=== PATIENT | female | born 1980 | race Caucasian/White ===

== ENCOUNTER 2019-12-05 02:47 | Emergency (ER) | payer SELFPAY ==
[2019-12-05] MEDS ORDERED: NA CHLORIDE 0.9% 0 ML ONE (03:13)
--- NOTE | 2019-12-05 03:22 | ER ---
Nurse's Notes [facility] Name: Maria Antonia Dotson Age: 39 yrs Sex: Female : 1980 Arrival Date: 12/05/2019 Time: 02:48 Bed 6 Private MD: Diagnosis: Acute upper respiratory infection, unspecified;, unspecified Presentation: 12/04 02:57 Chief complaint: Patient states: Pt reports she started having nausea, headache, sore ea throat and runny nose for the past two days. Coronavirus screen: Client presents with at least one sign or symptom that may indicate coronavirus-19. Standard/surgical mask placed on the client. Provider contacted for isolation considerations. Ebola Screen: No symptoms or risks identified at this time. Initial Sepsis Screen: Does the patient meet any 2 criteria? No. Patient's initial sepsis screen is negative. Does the patient have a suspected source of infection? No. Patient's initial sepsis screen is negative. Risk Assessment: Do you want to hurt yourself or someone else? Patient reports no desire to harm self or others. Onset of symptoms was December 05, 2019. 02:57 Method Of Arrival: Ambulatory 02:57 Acuity: LILIANA 3 ea Triage Assessment: 03:21 GI: Reports nausea, vomiting. 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 - Social history:: Smoking status: unknown. - Family history:: not pertinent. - Hospitalizations: : No recent hospitalization is reported. Screenin:59 Abuse screen: Denies threats or abuse. Nutritional screening: No deficits noted. ea Tuberculosis screening: No symptoms or risk factors identified. Fall Risk None identified. Assessment: 03:19 General: Appears in no apparent distress. Behavior is calm, cooperative, appropriate wh for age. Pain: Denies pain. Neuro: Level of Consciousness is awake, alert, obeys commands, Oriented to person, place, time, situation, Appropriate for age. Cardiovascular: Capillary refill < 3 seconds. Respiratory: Airway is patent Respiratory effort is even, unlabored, Respiratory pattern is regular, symmetrical. GI: Abdomen is flat, non-distended. : No signs and/or symptoms were reported regarding the genitourinary system. EENT: No signs and/or symptoms were reported regarding the EENT system. Derm: Skin is intact, is healthy with good turgor, Skin is pink, warm \T\ dry. normal. Musculoskeletal: Circulation, motion, and sensation intact. 03:19 Reassessment: Pt positive test, notified by , PT refusing further treatment and requesting to sign AMA, notified provider who talked to the PT. Vital Signs: 02:57 BP 120 / 77; Pulse 90; Resp 18; Temp 97.6; Pulse Ox 100% ; Weight 83.91 kg; Height 5 ea ft. 7 in. (170.18 cm); 02:57 Body Mass Index 28.97 (83.91 kg, 170.18 cm) ED Course: 02:48 Patient arrived in ED. cl3 02:52 Gerry Dupree MD is Attending Physician. rn 02:59 Yu Granados is Primary Nurse. 02:59 Triage completed. ea 03:00 Patient has correct armband on for positive identification. Placed in gown. Bed in low ea position. Call light in reach. 03:01 Arm band placed on right wrist. Patient placed in an exam room, on a stretcher, on ea pulse oximetry. 03:15 Inserted saline lock: 20 gauge in left antecubital area, using aseptic technique. Blood wh collected. 03:21 No provider procedures requiring assistance completed. IV discontinued, intact, bleeding controlled, No redness/swelling at site. 03:23 Primary Nurse role handed off by Yu Granados bb Administered Medications: No medications were administered Outcome: 03:21 AMA AMA form signed 03:21 Condition: stable 03:21 Instructed on follow up and referral plans. 03:22 Patient left the ED. 03:27 Patient left the ED. bb Signatures: Joy Flores RN Gerry Chairez MD MD rn Antunez, Elena, RN RN ea Habalo, Winsy Marie Red cl3
--- NOTE | 2019-12-05 03:22 | EDPHYS ---
Physician Documentation [facility] Name: Maria Antonia Dotson Age: 39 yrs Sex: Female : 1980 Arrival Date: 12/05/2019 Time: 02:48 Bed 6 Private MD: ED Physician Gerry Dupree HPI: 12/04 03:02 This 39 yrs old Female presents to ER via Ambulatory with complaints of rn Vomiting, Headache, chills, cough, sore throat. 03:03 The patient or guardian reports cough, flu symptoms, myalgias, no appetite. Onset: The rn symptoms/episode began/occurred today. Severity of symptoms: At their worst the symptoms were moderate, in the emergency department the symptoms are unchanged. Modifying factors: The symptoms are alleviated by nothing, the symptoms are aggravated by nothing. The patient has not experienced similar symptoms in the past. The patient has not recently seen a physician. Reports 1 day of subjective fever, chills, sore throat, cough, runny nose, myalgias, and generalized fatigue. No known sick contacts. . 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 - Social history:: Smoking status: unknown. - Family history:: not pertinent. - Hospitalizations: : No recent hospitalization is reported. ROS: 03:03 Constitutional: + chills and subjective fever Eyes: Negative for injury, pain, redness, rn and discharge, ENT: + nasal congestion and sore throat Cardiovascular: Negative for chest pain, palpitations, and edema, Respiratory: + cough Abdomen/GI: Negative for abdominal pain, and constipation, Back: Negative for injury and pain, MS/Extremity: Negative for injury and deformity, Skin: Negative for injury, rash, and discoloration, Neuro: + headache and generalized weakness Exam: 03:12 Constitutional: This is a well developed, well nourished patient who is awake, alert, rn and in no acute distress. Head/Face: Normocephalic, atraumatic. ENT: dry MM, no stridor Neck: Trachea midline, no masses palpated, and no cervical lymphadenopathy. Supple, full range of motion without nuchal rigidity, or vertebral point tenderness. No Meningismus. Cardiovascular: Regular rate and rhythm. No pulse deficits. Respiratory: No increased work of breathing, no retractions or nasal flaring. Abdomen/GI: soft, non-tender Skin: Warm, dry MS/ Extremity: Pulses equal, no cyanosis. Neurovascular intact. Full, normal range of motion. Equal circumference. Neuro: Awake and alert, GCS 15, oriented to person, place, time, and situation. Cranial nerves II-XII grossly intact. Motor strength 5/5 in all extremities. Sensory grossly intact. Cerebellar exam normal. Normal gait. Vital Signs: 02:57 BP 120 / 77; Pulse 90; Resp 18; Temp 97.6; Pulse Ox 100% ; Weight 83.91 kg; Height 5 ea ft. 7 in. (170.18 cm); 02:57 Body Mass Index 28.97 (83.91 kg, 170.18 cm) ea MDM: 02:52 Patient medically screened. rn 03:16 Differential Diagnosis: Viral Syndrome. Data reviewed: vital signs, nurses notes, laborer mine test result(s), UPT:. Counseling: I had a detailed discussion with the patient and/or guardian regarding: the historical points, exam findings, and any diagnostic results supporting the discharge/admit diagnosis, the need for outpatient follow up, to return to the emergency department if symptoms worsen or persist or if there are any questions or concerns that arise at home. Special discussion: I discussed with the patient/guardian in detail that at this point there is no indication for admission to the hospital. It is understood, however, that if the symptoms persist or worsen the patient needs to return immediately for re-evaluation. ED course: Pt notified of positive test, she cannot believe it, is thankful but requests that she be let home, wants IV removed, states she needs to go. Plans on seeing her doctor in AM. Told her that does not explain her viral symptoms, and recommend testing. She still wants to leave. Told her needs ultrasound given vaginal spotting and + preg test. . 12/04 02:58 Order name: Urine Microscopic Only rn 12/04 03:11 Order name: Urine --Ancillary (enter results) tt3 12/04 03:11 Order name: Urine Dipstick--Ancillary (enter results) tt3 Administered Medications: No medications were administered Disposition: 12/05/19 03:21 Patient has left against medical advice. Impression: Acute upper respiratory infection, unspecified, , unspecified. - Patients states they are going to Home. - Condition is Stable. - Discharge Instructions: Viral Respiratory Infection, First Trimester of . Follow up: Private Physician; When: As needed; Reason: Recheck today's complaints, Re-evaluation by your physician. - Problem is new. - Symptoms have improved. Signatures: Dispatcher [employer] EDTX Joy Flores RN RN bb Nieto, Roman, MD MD rn Antunez, Elena, RN RN ea Habalo, Winsy Corrections: (The following items were deleted from the chart) 03:19 03:03 Chest Single View+RAD.RAD.BRZ ordered. [facility] 03:22 03:21 12/05/2019 03:21 Patients has left against medical advice. Patient states they wh are going to Home. Condition is Stable. 03:24 03:22 12/05/2019 03:21 Patients has left against medical advice. Patient states they rn are going to Home. Condition is Stable. 03:27 03:24 12/05/2019 03:21 Patients has left against medical advice. Impression: Acute bb upper respiratory infection, unspecified; , unspecified. Patient states they are going to Home. Condition is Stable. Follow up: Private Physician; When: As needed; Reason: Recheck today's complaints, Re-evaluation by your physician. Problem is new. Symptoms have improved. rn
[2019-12-05 03:33] VITALS: BP 120/77; TEMP 97.6; O2SAT 100
[2019-12-05 04:41] LABS: Urine Blood 3+ (NEG); Urine Glucose NEGATIVE (NEG); Urine Protein 1+ (NEG); Urine pH 8.5 (5.0-7.0)
[2019-12-05 04:41] LABS: Urine Bacteria >50 /HPF (<20); Urine Culture Reflex Order REFLEXED; Urine RBC <5 /HPF (NONE SEEN)
== END 2019-12-05 03:27 | disposition left against medical advice (07) ==
LOC: ER 02:47
DX: J06.9 Acute upper respiratory infection, unspecified (principal); Z33.1 Pregnant state, incidental; Z88.0 Allergy status to penicillin; Z88.5 Allergy status to narcotic agent
CPT/HCPCS: 81003; 81015; 81025; 87086; 87088; 99283; J7030

== ENCOUNTER 2020-07-07 14:49 | Inpatient (IN) | payer SELFPAY ==
[2020-07-07] MEDS ORDERED: DIPHENHYDRAMINE 25 MG TAB/CAP PO PRN (15:15)
[2020-07-07] MEDS ORDERED: DOCUSATE NA/SENNA CONC 1 TAB PO PRN (15:15)
[2020-07-07] MEDS ORDERED: BISACODYL 10 MG RECTAL SUPP PR PRN (15:15)
[2020-07-07] MEDS ORDERED: IBUPROFEN 200 MG TAB PO PRN (15:15)
[2020-07-07] MEDS ORDERED: ACETAMINOPHEN 500 MG TAB PO PRN (15:15)
[2020-07-07] MEDS ORDERED: CARBOPROST TROME 250 MCG/ML IM PRN (15:42)
[2020-07-07] MEDS ORDERED: Ringers Lactate 1,000 ML IV PRN (15:42)
[2020-07-07] MEDS ORDERED: METHYLERGONOVINE 0.2MG/ML AMP IM PRN (15:42)
[2020-07-07] MEDS ORDERED: LABETALOL 20 MG/4ML SYRINGE IV ONE (15:50)
[2020-07-07] MEDS ORDERED: LABETALOL 20 MG/4ML SYRINGE IV PRN (15:51)
[2020-07-07] MEDS ORDERED: Ringers Lactate 1,000 ML IV SCH (16:00)
[2020-07-07] MEDS ORDERED: OXYTOCIN/LR 20 UNIT/1,000 ML BAG IV SCH ×2 (16:00)
[2020-07-07] MEDS: Oxycodone HCl/Acetaminophen 1 TAB TAB PO PRN (16:30)
[2020-07-07 16:38] LABS: Urine Appearance CLEAR (Clear); Urine Bilirubin NEGATIVE (Negative); Urine Blood 3+ (Negative); Urine Color YELLOW (Yellow); Urine Glucose NEGATIVE (Negative); Urine Protein TRACE (Negative); Urine Specific Gravity 1.025 (1.005-1.030)
[2020-07-07 16:48] LABS: Barbiturates NEGATIVE (NEGATIVE); Benzodiazepines NEGATIVE (NEGATIVE); Cocaine NEGATIVE (NEGATIVE); METHAMPHETAM POSITIVE (NEGATIVE); Methadone NEGATIVE (NEGATIVE); Opiates NEGATIVE (NEGATIVE); Phencyclidine NEGATIVE (NEGATIVE); THC Cannibis NEGATIVE (NEGATIVE)
[2020-07-07 16:50] LABS: Absolute Lymphocytes (CBC) 1.5 K/uL (0.7-4.9); Basophils % 0.3 % (0-1.3); Hematocrit 31.2 % (36.0-45.0); Lymphocytes % 12.1 % (15.3-44.8); MPV 9.7 fL (7.6-11.3); RBC Red Blood Cell Count 4.12 M/uL (3.86-4.86)
[2020-07-07 16:51] LABS: Urine Bacteria 20-50 /HPF (<20); Urine Mucus 2+ /HPF (NONE SEEN); Urine RBC 20-50 /HPF (NONE SEEN)
[2020-07-07 17:03] VITALS: BMI 29.2
[2020-07-07] MEDS ORDERED: cloNIDine HCL 0.1 MG TAB PO PRN (17:05)
--- NOTE | 2020-07-07 20:23 | DN ---
Surgeon: Bc Kaur MD A 40-year-old 6, para 4, AB1. No care. The patient claims she did not even know sh montse was until she went in to labor today. Says she was thinking about getting a tubal, talked to her doctor 2 to 3 years ago and of course did nothing since then. She was complete on the perine um. When I arrived IV had been started. Second stage of about 20 minutes. Spontaneous vaginal deli very of a 4 pounds 14 ounces female. SGA but obviously term and Apgars 9 and 9. 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 No resuscitation of the baby necessary. Maximino delivery of the placenta. Estimated blood loss 300 cc. No episiotomy. No lacerations. The patient tolerated all procedures well. Diagnoses: Term intrauterine . No care. Vaginal delivery. Small for gestational age. Patient admits to smoking a pack or more of cigarettes a day. Urinary drug screen ordered. DAKOTAH/NIMISHA Voice ID: [id number] Report ID: [id number]
--- NOTE | 2020-07-07 20:26 | HP ---
Date of Admission: 07/07/2020 History Of Present Illness: A 40-year-old multiparous female, 6, para 4, AB1, unknown gestat ional age. No care. Admits to smoking a pack a day or more. Much older than stated age. The patient came in complete and on the perineum. Second stage of about 20 minutes. Family History: Noncontributory. Allergies: PATIENT IS ALLERGIC TO PENICILLIN. Past Surgical History: She has had her gallbladder and appendix removed. Past Medical History: She has no other significant medical history. Physical Examination: Vital Signs: All stable. HEENT: Clear. Pupils are equal, round, reactive to light and accommodation. Poor dental hygiene. Lungs: Clear. Heart: Without murmurs. Breasts: Not examined. Abdomen: Was in the 35- to 37-week size range. Extremities: Clear, although toenail fungus is appa rent. Basically a drop in patient with no care, small for gestational age baby, and we will do our urinary drug screen checking for things such as methamphetamine. DAKOTAH/NIMISHA Voice ID: [id number]
[2020-07-07 21:53] LABS: RPR (Rapid Plasma Reagin) NON-REACT (NON-REACT)
[2020-07-08] MEDS ORDERED: MEDROXYPROGEST ACET 150 MG/ML IM SCH (08:00)
[2020-07-08] MEDS: Oxycodone HCl/Acetaminophen 1 TAB TAB PO PRN ×2 (08:37→21:00)
--- NOTE | 2020-07-09 03:55 | DS ---
Maria Antonia Dotson, a 40-year-old multiparous female. No care. Came in to our institution and d elivered rapidly a 4 pounds 14 ounces female, obviously term SGA. The patient admits to smoking a pa ck of cigarettes or more per day. Had uneventful delivery. Delivery of the placenta without problem s. 300 cc blood loss. The patient is Rh positive, positive for COVID, positive for amphetamine. CP S has been notified. She says she is interested in getting a tubal ligation, but has not been qualif ied for Medicare at this point. She asked for control because she is a smoker and over 35 year s old. We will offer her Depo-Provera that we will give her 3 months and during that time, she knows she needs to get in touch with [facility] to arrange for a tubal sterilization which she wants and I think is a good idea. The baby has done quite well, although CPS has not talked to the patient yet. The patient is much older looking than her stated age and as indicated was positive for methamphetam ine. She denies use. At this point, diagnosis is a 40-year-old multiparous female, positive for amp hetamines, positive for COVID, very high blood pressures which have moderated. The patient states th at she is on hydrochlorothiazide at home and will resume that when she gets home, but now quite stabl e to be dismissed after talking to Pipe Coverer and CPS. DAKOTAH/NIMISHA Voice ID: [id number] Report ID: [id number]
[2020-07-09] MEDS ORDERED: Tdap (Diph,Pertuss(Acell),Tet Vac) 0.5 ML SYR IMVAC ONE (07:31)
[2020-07-09] MEDS: Oxycodone HCl/Acetaminophen 1 TAB TAB PO PRN (07:49)
[2020-07-09] MEDS ORDERED: MEDROXYPROGEST ACET 150 MG/ML IM SCH (08:00)
[2020-07-09 08:45] VITALS: BP 159/90; TEMP 97.7
[2020-07-11 03:26] LABS: HBsAG Nonreactive (Nonreactive)
== END 2020-07-09 10:15 | disposition home or self-care (01) | DRG 178 ==
LOC: 2ND-WC 14:49
PROVIDERS: ADMIT Specialist; ATTEND Specialist
PROC: 10E0XZZ Delivery of Products of Conception, External Approach (ICD-10-PCS; principal; 2020-07-07)
DX: U07.1 COVID-19 (principal); O98.52 Other viral diseases complicating childbirth; O99.324 Drug use complicating childbirth; O99.334 Smoking (tobacco) complicating childbirth; Z37.0 Single live birth; Z3A.37 37 weeks gestation of pregnancy; Z23 Encounter for immunization; Z80.0 Family history of malignant neoplasm of digestive organs
CPT/HCPCS: 36415; 80307; 81001; 85025; 86592; 86762; 86850; 86900; 86901; 87086; 87088; 87340; 90471; 90715; G0433; J1050; J2590; J7120; U0003

== ENCOUNTER 2021-02-24 07:29 | Emergency (ER) | payer SELFPAY ==
[2021-02-24 08:30] LABS: Absolute Lymphocytes (CBC) 1.6 K/uL (0.7-4.9); Lymphocytes % 28.6 % (15.3-44.8); MPV 7.1 fL (7.6-11.3); RBC Red Blood Cell Count 4.37 M/uL (3.86-4.86)
[2021-02-24 08:36] LABS: Protime INR 1.03
[2021-02-24 08:55] LABS: ALT/SGPT 26 U/L (12-78); AST/SGOT 15 U/L (15-37); Alkaline Phosphatase 89 U/L (45-117); BUN Blood Urea Nitrogen 19 mg/dL (7-18); Bicarbonate 26 mmol/L (21-32); Bilirubin Direct 0.2 mg/dL (0-0.2); Bilirubin Total 0.9 mg/dL (0.2-1.0); Glucose Level 93 mg/dL (74-106); Potassium 4.5 mmol/L (3.5-5.1); Protein, Total 8.1 g/dL (6.4-8.2); Sodium Level 139 mmol/L (136-145)
[2021-02-24 11:00] LABS: Urine Blood Trace-lysed (Negative); Urine Glucose Negative (Negative); Urine Protein 1+ (Negative); Urine Specific Gravity >=1.030 (1.005-1.030); Urine pH 5.5 (5.0-7.0)
[2021-02-24 11:16] LABS: Barbiturates NEGATIVE (NEGATIVE); Benzodiazepines NEGATIVE (NEGATIVE); Cocaine NEGATIVE (NEGATIVE); METHAMPHETAM POSITIVE (NEGATIVE); Methadone NEGATIVE (NEGATIVE); Opiates NEGATIVE (NEGATIVE); Phencyclidine NEGATIVE (NEGATIVE); THC Cannibis POSITIVE (NEGATIVE)
[2021-02-24 11:34] LABS: Urine Specific Gravity/Preg >1.030 (1.005-1.030)
[2021-02-24] MEDS ORDERED: DIAZEPAM 5 MG TABLET ONE (18:48)
--- NOTE | 2021-02-25 07:49 | EKG ---
Test Date: 2021-02-24 Test Time: 11:00:[address]: [place]UANITA MEASUREMENT RESULTS: Intervals: Rate: 76 [place]: 178 QRSD: 84 QT: 404 QTc: 454 [place]: P: -10 [place]: 178 QRS: -25 T: -16 INTERPRETIVE STATEMENTS: Normal sinus rhythm Voltage criteria for left ventricular hypertrophy Abnormal ECG No previous ECG available for comparison Electronically Signed On 02-25-21 07:45:46 RADIO ADJUSTER by Jose Antonio Kaur
[2021-02-25] MEDS ORDERED: DIAZEPAM 5 MG TABLET ONE ×2 (13:07→23:44)
[2021-02-26] MEDS ORDERED: DIAZEPAM 5 MG TABLET ONE ×2 (11:00→22:13)
--- NOTE | 2021-02-26 22:01 | EDPHYS ---
Physician Documentation [facility] Name: Maria Antonia Dotson Age: 40 yrs Sex: Female : 1980 Arrival Date: 02/24/2021 Time: 07:38 Bed 14 Private MD: ED Physician Ilir Marin HPI: 02/24 08:20 This 40 yrs old Female presents to ER via Ambulatory with complaints of Suicidal jr8 Ideation. 08:20 Associated signs and symptoms: The patient has no apparent associated signs or jr8 symptoms. Severity of symptoms: At their worst the symptoms were moderate in the emergency department the symptoms are unchanged. The patient has experienced a previous episode. The patient has not recently seen a physician. Has been hearing voices and seeing things that she shouldn't be seeing about 6 months ago. Stated that it has been getting worse since then. Saw someone initially and was put on Lamictal. Stated that she had PTSD. Stated that she tried to kill herself by taking a bunch of pills about a month ago. Feels very paranoid. Occasionally utilized methamphetamine's as well. Came to ED today because voices continue to get worse and feels suicidal. No plan currently. Stated that she has an overwhelming feeling of "just not wanting to be alive any longer". . [employer]ER: 02/26 05:24 LMP N/A - sv1 Historical: - Allergies: 02/24 07:51 PENICILLINS; ll1 07:51 Tramadol HCl; ll1 - PMHx: 07:55 Hypertensive disorder; ll1 - PSHx: 07:55 Appendectomy; Cholecystectomy; ll1 - Immunization history:: Client reports receiving the 2nd dose of the Covid vaccine. - Social history:: Smoking status: Patient reports the use of cigarette tobacco products, smokes one-half pack cigarettes per day. ROS: 08:20 Eyes: Negative for injury, pain, redness, and discharge, ENT: Negative for injury, jr8 pain, and discharge, Neck: Negative for injury, pain, and swelling, Cardiovascular: Negative for chest pain, palpitations, and edema, Respiratory: Negative for shortness of breath, cough, wheezing, and pleuritic chest pain, Abdomen/GI: Negative for abdominal pain, nausea, vomiting, diarrhea, and constipation, Back: Negative for injury and pain, MS/Extremity: Negative for injury and deformity, Skin: Negative for injury, rash, and discoloration, Neuro: Negative for headache, weakness, numbness, tingling, and seizure. 08:20 Psych: Positive for anxiety, depression, auditory hallucinations, visual hallucinations, suicidal ideation. Exam: 08:20 ENT: Nares patent. No nasal discharge, no septal abnormalities noted. Tympanic jr8 membranes are normal and external auditory canals are clear. Oropharynx with no redness, swelling, or masses, exudates, or evidence of obstruction, uvula midline. Mucous membranes moist. Neck: Trachea midline, no thyromegaly or masses palpated, and no cervical lymphadenopathy. Supple, full range of motion without nuchal rigidity, or vertebral point tenderness. No Meningismus. Cardiovascular: Regular rate and rhythm with a normal S1 and S2. No gallops, murmurs, or rubs. Normal PMI, no JVD. No pulse deficits. Respiratory: Lungs have equal breath sounds bilaterally, clear to auscultation and percussion. No rales, rhonchi or wheezes noted. No increased work of breathing, no retractions or nasal flaring. Abdomen/GI: Soft, non-tender, with normal bowel sounds. No distension or tympany. No guarding or rebound. No evidence of tenderness throughout. Back: No spinal tenderness. No costovertebral tenderness. Full range of motion. Skin: Warm, dry with normal turgor. Normal color with no rashes, no lesions, and no evidence of cellulitis. MS/ Extremity: Pulses equal, no cyanosis. Neurovascular intact. Full, normal range of motion. Neuro: Awake and alert, GCS 15, oriented to person, place, time, and situation. Cranial nerves II-XII grossly intact. Motor strength 5/5 in all extremities. Sensory grossly intact. Cerebellar exam normal. Normal gait. 08:20 Constitutional: The patient appears alert, awake, anxious. 08:20 Psych: Behavior/mood is cooperative, anxious, suicidal, depressed, Affect is animated, Oriented to person, place, time, Patient having thoughts of suicide. Denies suicidal plan. Judgement / Insight is normal. Memory is normal. Delusions/hallucinations are present and described as see hpi. Vital Signs: 07:51 BP 126 / 72; Pulse 89; Resp 17; Temp 99.1; Pulse Ox 100% ; Weight 77.11 kg; Height 5 ll1 ft. 7 in. (170.18 cm); Pain 5/10; 11:00 BP 115 / 84; Pulse 78; Resp 16 S; Pulse Ox 98% on R/A; jg9 18:48 BP 94 / 60; Pulse 90; Resp 18 S; Pulse Ox 96% on R/A; jg9 19:58 BP 106 / 45 LA Supine (auto/reg); Pulse 84; Resp 16; Temp 98.2; Pulse Ox 99% ; tk1 02/25 06:31 BP 117 / 72 LA Supine (auto/reg); Pulse 77 MON; Resp 18; Temp 98.5(O); Pulse Ox 98% on tk1 R/A; 07:10 BP 123 / 74; Pulse 76; Resp 18; Temp 97.7(O); Pulse Ox 100% ; Pain 0/10; jh6 17:47 BP 106 / 50; Pulse 72; Resp 17; Temp 97.6(O); Pulse Ox 100% ; Pain 0/10; jh6 02/26 01:59 BP 121 / 59; Pulse 87; Resp 14; Temp 98.4; Pulse Ox 98% ; sv1 09:37 BP 111 / 76; Pulse 82; Resp 16; Temp 98.6(O); Pulse Ox 100% on R/A; mh5 19:36 BP 118 / 89; Pulse 88; Resp 21; Temp 99.0; Pulse Ox 100% 0 lpm ; sv1 02/27 01:49 BP 119 / 75; Pulse 80; Resp 14; Temp 98.0; Pulse Ox 99% 0 lpm ; sv1 06:31 BP 120 / 77; Pulse 77; Resp 16; Pulse Ox 96% ; sv1 07:15 BP 118 / 72; Pulse 76; Resp 16; Temp 98.6; Pulse Ox 98% ; Pain 0/10; cb5 12:05 BP 116 / 70; Pulse 70; Resp 16; Pulse Ox 98% ; Pain 0/10; cb5 02/24 07:51 Body Mass Index 26.63 (77.11 kg, 170.18 cm) ll1 MDM: 02/24 08:20 Patient medically screened. jr8 02/26 17:02 Differential diagnosis: drug withdrawal. acute psychotic break, depression, psychosis ma2 secondary to non-compliance. Data reviewed: vital signs, nurses notes. Counseling: I had a detailed discussion with the patient and/or guardian regarding: the historical points, exam findings, and any diagnostic results supporting the discharge/admit diagnosis, the presence of at least one elevated blood pressure reading (>120/80) during this emergency department visit, the need to transfer to another facility. Response to treatment: There is no appreciated change of the patient's symptoms at this time. ED course: I received signout from Dr. Alvarado as a psych patient pending placement. I evaluated patient she had suicidal ideation, she had organized thought of suicidal plan within the last 3 months, she feels depressed, positive substance use, she also has no home or support system. She was evaluated by behavioral health, and they recommends inpatient placement, need to be transferred to higher level of care for psych facility since we do not have a psychiatrist in our hospital. Patient has been agreeable to transfer and agreeable to inpatient care. However at 1704, patient raise concern that she would like to be discharged at this time. Reviewed all risk factors, given that this is a high risk suicide ideation, will place patient on ARTIE.. 02/27 13:24 ED course: Patient is currently residing with Dada Anaya. Mr. Anaya arrived in the kdr department and was able to provide some overall background context for her current condition and mental status. He states that the patient has lived with him for some time. He indicated and confirmed that her psychiatric status is largely depended on the fact that her children have been taken from her recently. He states that he is seeing her and suicidal states previously and that he recognizes when she is becoming unstable and may need professional evaluation and treatment. He had no concern whatsoever and taking the patient home with him. He indicated that there were others, family and friends, who would be able to help look after her as well. Again he had no reservations in us discharging the patient and his care. 02/24 08:12 Order name: Acetaminophen; Complete Time: ll1 02/24 08:12 Order name: Basic Metabolic Panel; Complete Time: : ll1 02/24 08:12 Order name: CBC with Diff; Complete Time: 08:47 ll1 02/24 08:12 Order name: ETOH Level; Complete Time: ll1 02/24 08:12 Order name: Hepatic Function; Complete Time: : [facility] 02/24 08:12 Order name: PT-INR; Complete Time: 08:47 [facility] 02/24 08:12 Order name: Ptt, Activated; Complete Time: 08:47 [facility] 02/24 08:12 Order name: Salicylate; Complete Time: 09:22 [facility] 02/24 08:12 Order name: Urine Drug Screen; Complete Time: 11:16 [facility] 02/24 10:27 Order name: COVID-19 SARS RT PCR (Document "Date of Onset" if Symptomatic); Complete bd Time: 12:20 02/24 11:00 Order name: Urine Dipstick-Ancillary; Complete Time: 11:03 EDMS 02/24 11:00 Order name: Urine --Ancillary (enter results); Complete Time: 11:35 bd 02/24 08:12 Order name: EKG; Complete Time: 08:12 [facility] 02/24 08:12 Order name: EKG - Nurse/Tech; Complete Time: 11:00 [facility] 02/24 08:12 Order name: Labs collected and sent; Complete Time: 10:52 [facility] 02/24 08:12 Order name: Suicide Screening (Benzie); Complete Time: 10:52 [facility] 02/24 08:12 Order name: Urine Dipstick-Ancillary (obtain specimen); Complete Time: 11:00 [facility] 02/24 13:24 Order name: Diet Finger Food; Complete Time: 13:25 02/24 16:11 Order name: Diet Finger Food; Complete Time: 16:11 bd 02/25 07:27 Order name: Diet Finger Food; Complete Time: 07:27 bd 02/25 10:17 Order name: Diet Finger Food: For Lunch 02/25 psych pt; Complete Time: 10:18 ss 02/25 15:37 Order name: Diet Finger Food; Complete Time: 15:37 bd 02/26 11:33 Order name: Diet Finger Food; Complete Time: 11:33 bd Administered Medications: 02/24 18:50 Drug: Valium (diazepam) 5 mg Route: PO; jg9 02/25 23:09 Follow up: Response: No adverse reaction sv1 13:08 Drug: Valium (diazepam) 5 mg Route: PO; jh6 15:24 Follow up: Response: Anxiety decreased jh6 23:08 Follow up: Response: No adverse reaction sv1 23:49 Follow up: Response: No adverse reaction sv1 23:49 Drug: Valium (diazepam) 5 mg Route: PO; sv1 02/26 05:25 Follow up: Response: No adverse reaction; Anxiety decreased sv1 11:00 Drug: Valium (diazepam) 5 mg Route: PO; cb5 22:15 Drug: Valium (diazepam) 5 mg Route: PO; sv1 02/27 06:33 Follow up: Response: No adverse reaction; Anxiety decreased sv1 Disposition: 02/26 22:01 Co-signature as Attending Physician, Trevon Hernández MD I agree with the assessment and [facility] plan of care. Disposition Summary: 02/27/21 13:27 Discharge Ordered Location: Home kdr Problem: an acute exacerbation(02/27/21 13:27) kdr Symptoms: are resolved(02/27/21 13:27) kdr Condition: Stable(02/27/21 13:27) kdr Diagnosis - Major depressive disorder, recurrent, moderate, schizophrenia, unspecified, abuse kdr of other nonpsychoactive substances, adverse effects of amphetamine, Followup: kdr - With: Private Physician - When: 2 - 3 days - Reason: If symptoms return, Further diagnostic work-up, Recheck today's complaints, Continuance of care, Re-evaluation by your physician Discharge Instructions: - Discharge Summary Sheet kdr Forms: - Medication Reconciliation Form kdr - Thank You Letter kdr - Antibiotic Education kdr - Prescription Opioid Use kdr Signatures: Dispatcher [employer] EDTrevon Adams MD MD cha Rittger, Kevin, MD MD kdr Nieto, Roman, MD MD rn Roszak, Josh, PA PA jr8 Jayson Finley MD MD ma2 oLida Red RN RN ll1 Kemi Lazcano RN RN jh6 Kemi Burton, RN RN jg9 Preston Peck RN RN sv1 Yessenia Alberto, RN RN cb5 Corrections: (The following items were deleted from the chart) 22:01 22:00 to psych nick nick 02/27 13:02/26 22:00 Psych Facility nick kdr 02/27 13:02/26 22:00 Higher level of care nick kdr 02/27 13:02/26 22:00 Stable nick kdr 02/27 13:02/26 22:00 new nick kdr 02/28 12:02/26 22:00 have improved nick kdr 02/28 12:02/26 22:00 Major depressive disorder, recurrent, moderate nick kdr 02/28 12:02/26 22:00 Schizophrenia, unspecified nick kdr 02/28 12:02/26 22:01 to psych nick kdr 02/28 12:02/26 22:01 Abuse of other non-psychoactive substances nick kdr 02/28 12:02/26 22:01 Adverse effect of amphetamines nick kdr
--- NOTE | 2021-02-26 22:01 | ER ---
Nurse's Notes [facility] Name: Maria Antonia Dotson Age: 40 yrs Sex: Female : 1980 Arrival Date: 02/24/2021 Time: 07:38 Bed 14 Private MD: Diagnosis: Major depressive disorder, recurrent, moderate, schizophrenia, unspecified, abuse of other nonpsychoactive substances, adverse effects of amphetamine, Presentation: 02/24 07:51 Chief complaint: Patient states: Haering voices and generalized suicidal thoughts for ll1 about 2 weeks. No history of SI or hearing voices. Coronavirus screen: Vaccine status: Patient reports receiving the 2nd dose of the covid vaccine. Client denies travel out of the [place] in the last 14 days. At this time, the client does not indicate any symptoms associated with coronavirus-19. Ebola Screen: Patient denies travel to an Ebola-affected area in the 21 days before illness onset. Initial Sepsis Screen: Does the patient meet any 2 criteria? No. Patient's initial sepsis screen is negative. Does the patient have a suspected source of infection? No. Patient's initial sepsis screen is negative. Risk Assessment: Do you want to hurt yourself or someone else? Patient reports no desire to harm self or others. Onset of symptoms was February 10, 2021. 07:51 Method Of Arrival: Ambulatory ll1 07:51 Acuity: LILIANA 2 bb Triage Assessment: 11:11 General: Appears in no apparent distress. Behavior is calm, crying. Pain: Complains of jg9 pain in chest. 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 - Social history:: Smoking status: Patient reports the use of cigarette tobacco products, smokes one-half pack cigarettes per day. Screenin:10 Abuse screen: Denies threats or abuse. Denies injuries from another. Nutritional jg9 screening: No deficits noted. Tuberculosis screening: No symptoms or risk factors identified. Fall Risk None identified. Assessment: 11:38 Reassessment: Patient appears in no apparent distress at this time. Patient resting in jg9 bed awake, calm and cooperative. Patient conversing with nurse and reports that she has been having a rough time since August-she reports that she started experiencing things or what she thought was things causing her hair to move, and she reported she lived in a residence that was infested with termites so she moved out the home and into a hotel with her 2 children. Patient goes on to report that she lived there until she caught COVID-had to miss her probation report appointment which resulted in a warrant being issued . Patient said she was on probation due to a DUI a few years ago, she was stopped at a gas station and due to the warrant was taken to custodial. Patient goes on to report that ever since then it has been one thing after the next to the point of her currently being homeless and feeling helpless. Patient reports that she has/had been hearing voices. Patient states she has no plan or idea of how to kill herself but if she could go to sleep and not wake up she is ok with that; but she is suicidal and is just at the bottom and does not see anything improving or getting better for her. Patient reports 1 person that was helping her; Dada but last night he put her out his car after they made attempts to find a place for the patient to go, she report that Dada said she is trying to take him down with her. Patient reports that she slept outside in the cold all night and just couldn't take it anymore so she came to the ED to get food and warm. Patient crying at times during this conversation but was very open to questions asked. 19:27 Reassessment: Patient is alert, oriented x 3, equal unlabored respirations, skin tk1 warm/dry/pink. Patient at nurses station using telephone. Requesting friend bring her cell to her for transfer. 20:02 Reassessment: Patient changed into paper gown. Personal items removed and inventory tk1 done on paper documentation. 22:00 Reassessment: Patient appears in no apparent distress at this time. No changes from tk1 previously documented assessment. 02/25 00:00 Reassessment: Patient appears in no apparent distress at this time. No changes from tk1 previously documented assessment. Patient resting with eyes closed. Respirations even and unlabored. Will continue to monitor. 04:00 Reassessment: Patient awake, calm. Requested something to eat and drink. Patient given tk1 crackers and peanut butter with drink. Patient ate 100%. 06:30 Reassessment: No changes from previously documented assessment. Patient is alert, tk1 oriented x 3, equal unlabored respirations, skin warm/dry/pink. 07:10 Reassessment: Patient is alert, oriented x 3, equal unlabored respirations, skin jh6 warm/dry/pink. General: Appears in no apparent distress. comfortable, obese, Pt states that she has recently lost her house and that with increased drug use that she has had thoughts of harming herself. states that she was able to sleep well last night but that she is feeling a little anxious. states that she is not feeling si this am but knows that she needs help. reports hearing voices for some time but has never been on meds.. 09:00 Reassessment: No changes from previously documented assessment. Patient is alert, jh6 oriented x 3, equal unlabored respirations, skin warm/dry/pink. 09:00 Pain: Denies pain. Neuro: No deficits noted. jh6 17:42 Reassessment: Patient is alert, oriented x 3, equal unlabored respirations, skin jh6 warm/dry/pink. pt eating dinner nad, laughing at while watching tv. 23:51 Reassessment: The patient has been cooperative . She has been eating finger foods. sv1 Affect is calm and cooperative. Will continue to monitor. . 02/26 02:00 Reassessment: Vital signs stable. No acute distress noted. Exclusion document was sent sv1 to [facility]. . 05:24 Reassessment: Continues to sleep quietly. . sv1 07:10 General: Appears in no apparent distress. comfortable, obese, Behavior is calm, pt cb5 asleep.. no distress. Pain: Noted to be pt asleep. Cardiovascular: No deficits noted. Respiratory: No deficits noted. GI: No deficits noted. : No deficits noted. EENT: No deficits noted. Derm: No deficits noted. Musculoskeletal: No deficits noted. 07:44 Reassessment: Pt awake, eating breakfast, denies pain, no distress. Safety precautions cb5 in effect on SI precautions, Pt is in view of nurse at nurses station. No harmful equiptment at bedside. No sharps in room. Pt is calm, cooperative. 07:54 Reassessment: pt ate 100% of breakfast, larry well. Pt went back to sleep. Remains in cb5 nurses view. 08:30 Reassessment: Pt asleep, no distress, safety precautions in effect. cb5 09:00 Reassessment: pt in no distress, safety precautions are in effect. cb5 09:30 Reassessment: pt in no distress, safety precautions in effect. cb5 10:00 Reassessment: No changes from previously documented assessment. cb5 10:30 Reassessment: pt awake, no distress, safety precautions in effect. cb5 11:00 Reassessment: pt asleep no distress, safety precautions in effect. cb5 12:00 Reassessment: No changes from previously documented assessment. cb5 13:00 Reassessment: No changes from previously documented assessment. cb5 14:00 Reassessment: No changes from previously documented assessment. cb5 15:00 Reassessment: No changes from previously documented assessment. cb5 16:00 Reassessment: No changes from previously documented assessment. cb5 17:27 Reassessment: No changes from previously documented assessment. pt eating finner, in no cb5 distress, safety precautions in effect.. 18:00 Reassessment: No changes from previously documented assessment. pt ate 100% of dinner cb5 tolerated well, denies pain, no distress. safety precautions in effect, pt denies SI thoughts throughout day. . 22:27 Reassessment: Resting quietly. Medicated po for anxiety. Will continue to monitor. -. sv1 02/27 01:50 Reassessment: Sleeping quietly. No distress noted. . sv1 07:00 Reassessment: Patient and/or family updated on plan of care and expected duration. Pain cb5 level reassessed. pt is asleep in no distress, in view of nurses station. Safety precautions in effect. 08:00 Reassessment: No changes from previously documented assessment. pt ate 100% of cb5 breakfast, larry well, no distress. Asleep. 09:00 Reassessment: No changes from previously documented assessment. cb5 09:45 Reassessment: pt is requesting to go home, AMA, denies feeling SI/HI wants to speak cb5 with the charge nurse and Sumeet. Informed charge nurse. Pt is here voluntary. 10:00 Reassessment: No changes from previously documented assessment. cb5 10:23 Reassessment: Sumeet is at bedside with patient. cb5 11:00 Reassessment: No changes from previously documented assessment. cb5 11:35 Reassessment: pt is waiting on family member to arrive to discuss safety plan before cb5 possible discharge home. 12:00 Reassessment: No changes from previously documented assessment. cb5 Psych: 02/24 11:11 [place] Suicide Severity Screening: In the past month, have you wished you were jg9 or wished you could go to sleep and not wake up? Patient responds "yes." "In the past month, have you actually had any thoughts of killing yourself?" Patient responds "no." "In your lifetime, have you ever done anything, started to do anything, or prepared to do anything to end your life?" Patient responds "no.". Subjective: Patient's mood is sad, Delusions are denied, Hallucinations are auditory, Having thoughts of suicide. Objective: Patient is cooperative, Speech is normal, Affect is appropriate. Interventions: Searched person for dangerous items. Urine collected and sent for urine drug test. Safety Checks: Patient room near nursing station, curtain open. Patient uses methamphetamines hx of abuse reported by patient. Commitment: Patient will be a voluntary commitment. 02/25 00:40 [place] Suicide Severity Screening: In the past month, have you wished you were tk1 or wished you could go to sleep and not wake up? Patient responds "yes." Based off the client's responses additional C-SSRS screening is required. Subjective: Hallucinations are auditory. Objective: Patient is cooperative, Speech is normal, Affect is appropriate. Interventions: Removed personal items and placed in bag. Patient placed in hospital gown. Searched person for dangerous items. Belonging list filled out. Safety Checks: Personal items have been removed. Door closed for decreased stimulation. Britney opened. Patient within view of said nurse. Patient uses methamphetamines. Commitment: Patient will be a voluntary commitment. Vital Signs: 02/24 07:51 BP 126 / 72; Pulse 89; Resp 17; Temp 99.1; Pulse Ox 100% ; Weight 77.11 kg; Height 5 ll1 ft. 7 in. (170.18 cm); Pain 5/10; 11:00 BP 115 / 84; Pulse 78; Resp 16 S; Pulse Ox 98% on R/A; jg9 18:48 BP 94 / 60; Pulse 90; Resp 18 S; Pulse Ox 96% on R/A; jg9 19:58 BP 106 / 45 LA Supine (auto/reg); Pulse 84; Resp 16; Temp 98.2; Pulse Ox 99% ; tk1 02/25 06:31 BP 117 / 72 LA Supine (auto/reg); Pulse 77 MON; Resp 18; Temp 98.5(O); Pulse Ox 98% on tk1 R/A; 07:10 BP 123 / 74; Pulse 76; Resp 18; Temp 97.7(O); Pulse Ox 100% ; Pain 0/10; jh6 17:47 BP 106 / 50; Pulse 72; Resp 17; Temp 97.6(O); Pulse Ox 100% ; Pain 0/10; jh6 02/26 01:59 BP 121 / 59; Pulse 87; Resp 14; Temp 98.4; Pulse Ox 98% ; sv1 09:37 BP 111 / 76; Pulse 82; Resp 16; Temp 98.6(O); Pulse Ox 100% on R/A; mh5 19:36 BP 118 / 89; Pulse 88; Resp 21; Temp 99.0; Pulse Ox 100% 0 lpm ; sv1 02/27 01:49 BP 119 / 75; Pulse 80; Resp 14; Temp 98.0; Pulse Ox 99% 0 lpm ; sv1 06:31 BP 120 / 77; Pulse 77; Resp 16; Pulse Ox 96% ; sv1 07:15 BP 118 / 72; Pulse 76; Resp 16; Temp 98.6; Pulse Ox 98% ; Pain 0/10; cb5 12:05 BP 116 / 70; Pulse 70; Resp 16; Pulse Ox 98% ; Pain 0/10; cb5 02/24 07:51 Body Mass Index 26.63 (77.11 kg, 170.18 cm) ll1 ED Course: 02/24 07:38 Patient arrived in ED. ds1 07:51 Arm band placed on. ll1 07:55 Triage completed. ll1 08:20 Jose Anderson PA is PHCP. jr8 08:20 Gerry Dupree MD is Attending Physician. jr8 10:50 contacted [facility] to have screener evaluate pt. bd 10:52 Kemi Burton, RN is Primary Nurse. jg9 11:00 Appears tearful. Safety Checks: The door is open or patient has been placed in a [facility] hallway bed/chair. Items have not been removed Sitter not present at this time due to or because Patient under moderate observation, patient visible in room from the nurses station. 11:00 Patient has correct armband on for positive identification. Bed in low position. jg9 11:00 Urine Drug Screen Sent. mack 11:00 COVID-19 SARS RT PCR (Document "Date of Onset" if Symptomatic) Sent. mack 11:00 Urine Dipstick-Ancillary Sent. mack 11:45 Diet: finger foods and drinks provided. jg9 12:00 No apparent distress. conversing with staff-psych/social work supervisor. jg9 13:00 Appears to be sleeping. jg9 13:21 faxed chart to [facility] and [facility]. bd 14:00 Appears to be sleeping. jg9 18:44 pt is on wait list at [facility] for a [facility] bed. bd 18:48 Anxious. jg9 19:00 spoke with [facility], chart is still under review. bd 19:06 Attending Physician role handed off by Gerry Dupree MD sp3 19:06 Saeid Alvarado MD is Attending Physician. sp3 19:06 Saeid Alvarado MD is Attending Physician. sp3 19:30 Patient is placed in psych hold. tk1 02/25 00:22 Safety Checks: Personal items have been removed. Secured with security after inventory tk1 and labeling. The door is open or patient has been placed in a hallway bed/chair. Sitter not present at this time. 00:34 Dada (family friend) [phone]. mw2 07:05 Safety Checks: Personal items have been removed. The door is open or patient has been jh6 placed in a hallway bed/chair. Items have not been removed Sitter not present at this time. 07:05 transfer approval from receiving facility. jh6 09:00 No apparent distress. Resting quietly. Appears to be sleeping. jh6 09:00 Safety Checks: Personal items have been removed. The door is open or patient has been jh6 placed in a hallway bed/chair. Sitter not present at this time. 11:00 No apparent distress. Resting quietly. jh6 12:00 transfer approval from receiving facility. jh6 12:00 states that she is starting to feel a little anxious like last night. Pt asking if she jh6 can get some thing to help. Safety Checks: Personal items have been removed. Sitter not present at this time. 15:23 No apparent distress. Resting quietly. Appears to be sleeping. Safety Checks: The door jh6 is open or patient has been placed in a hallway bed/chair. Sitter not present at this time. 17:00 No apparent distress. Resting quietly. Safety Checks: Sitter not present at this time. 6 02/26 07:35 Primary Nurse role handed off by Kemi Burton, RN 5 07:35 Yessenia Alberto, KARL is Primary Nurse. 5 12:54 refaxed chart to [facility], [facility] with Mora, pt is on wait list for [facility]. bd 19:01 Report given to Kenyon Pickard cb5 21:58 Attending Physician role handed off by Saeid Alvarado MD nick 21:58 Trevon Hernández MD is Attending Physician. nick 02/27 13:24 Attending Physician role handed off by Trevon Hernández MD kdr 13:24 Ilir Marin MD is Attending Physician. kdr 13:35 No provider procedures requiring assistance completed. IV discontinued, intact, jl7 bleeding controlled, No redness/swelling at site. Pressure dressing applied. Administered Medications: 02/24 18:50 Drug: Valium (diazepam) 5 mg Route: PO; jg9 02/25 23:09 Follow up: Response: No adverse reaction sv1 13:08 Drug: Valium (diazepam) 5 mg Route: PO; jh6 15:24 Follow up: Response: Anxiety decreased jh6 23:08 Follow up: Response: No adverse reaction sv1 23:49 Follow up: Response: No adverse reaction sv1 23:49 Drug: Valium (diazepam) 5 mg Route: PO; sv1 02/26 05:25 Follow up: Response: No adverse reaction; Anxiety decreased sv1 11:00 Drug: Valium (diazepam) 5 mg Route: PO; cb5 22:15 Drug: Valium (diazepam) 5 mg Route: PO; sv1 02/27 06:33 Follow up: Response: No adverse reaction; Anxiety decreased sv1 Outcome: 02/26 22:00 ER care complete, transfer ordered by . nick 02/27 13:27 Discharge ordered by . kdr 13:35 Patient left the ED. jl7 Signatures: Daphney Andujar Corey, MD MD cha Rittger, Kevin, MD MD kdr Sanford, Bettye ds1 Joy Flores, RN RN bb Jose Anderson PA PA jr8 Magy Rouse Jahala RN RN jl7 Terri Diaz mw2 Loida Red RN RN ll1 Saeid Alvarado MD MD sp3 Kemi Lazcano RN RN jh6 Kemi Burton, RN RN jg9 Preston Peck RN RN sv1 Sejal Paniagua RN Keyona Sun tk1 Yessenia Alberto, RN RN cb5 Corrections: (The following items were deleted from the chart) 02/24 13:28 13:26 Diet: finger foods and drinks provided. jg9 jg9 21:57 07:51 Acuity: LILIANA 3 ll1 bb 02/25 00:44 00:25 General: Behavior is tk1 tk1
[2021-02-27 14:14] VITALS: TEMP 98.6; O2SAT 98
[2021-02-27 14:15] VITALS: BP 116/70
== END 2021-02-27 13:35 | disposition home or self-care (01) ==
LOC: ER 07:29
DX: F33.1 Major depressive disorder, recurrent, moderate (principal); F20.9 Schizophrenia, unspecified; F55.8 Abuse of other non-psychoactive substances; T43.625A Adverse effect of amphetamines, initial encounter; I10 Essential (primary) hypertension; F17.210 Nicotine dependence, cigarettes, uncomplicated; Z20.822 Contact with and (suspected) exposure to COVID-19; Z88.0 Allergy status to penicillin; Z88.5 Allergy status to narcotic agent
CPT/HCPCS: 36415; 80048; 80076; 80307; 80320; 80329; 81003; 81025; 85025; 85610; 85730; 93005; 99284; U0003

== ENCOUNTER 2021-06-10 08:25 | Emergency (ER) | payer SELFPAY ==
[2021-06-10] MEDS ORDERED: IBUPROFEN 400 MG TAB ONE (08:57)
[2021-06-10] MEDS ORDERED: IBUPROFEN 200 MG TAB PO ONE (08:57)
[2021-06-10 10:40] LABS: SARS-COV-2 RT PCR NEGATIVE (NEGATIVE)
--- NOTE | 2021-06-10 10:43 | ER ---
Nurse's Notes [facility] Name: Maria Antonia Dotson Age: 41 yrs Sex: Female : 1980 Arrival Date: 06/10/2021 Time: 08:27 Bed 16 Private MD: Diagnosis: Influenza A Presentation: 06/10 08:35 Chief complaint: Patient states: Body aches, congestion, MEJIA, fatigue, chills for 2 ll1 days. Coronavirus screen: Vaccine status: Patient reports receiving the 2nd dose of the covid vaccine. Client denies travel out of the [place] in the last 14 days. chills, congestion, fatigue, fever, headache, muscle pain, sore throat, Client presents with at least one sign or symptom that may indicate coronavirus-19. Standard/surgical mask placed on the client. Ebola Screen: Patient denies travel to an Ebola-affected area in the 21 days before illness onset. Initial Sepsis Screen: Does the patient meet any 2 criteria? No. Patient's initial sepsis screen is negative. Does the patient have a suspected source of infection? Yes: Other: nasal congestion/body aches. Risk Assessment: Do you want to hurt yourself or someone else? Patient reports no desire to harm self or others. Onset of symptoms was June 09, 2021. 08:35 Method Of Arrival: Ambulatory ll1 08:35 Acuity: LILIANA 4 ll1 Triage Assessment: 08:37 General: Appears ill, Behavior is cooperative, appropriate for age. Pain: Complains of ll1 pain in head Pain currently is 10 out of 10 on a pain scale. Pain began 1 day ago. Also complains of no other associated symptoms. EENT: Reports nasal congestion pain when swallowing. Neuro: Reports headache weakness. Musculoskeletal: Reports pain in all over. Historical: - Allergies: 08:35 PENICILLINS; ll1 08:35 Tramadol HCl; ll1 - PMHx: 08:35 Hypertensive disorder; ll1 - PSHx: 08:35 Appendectomy; Cholecystectomy; ll1 - Immunization history:: Client reports receiving the 2nd dose of the Covid vaccine. - Social history:: Smoking status: Patient reports the use of cigarette tobacco products, smokes one-half pack cigarettes per day. Screenin:04 Abuse screen: Denies threats or abuse. Denies injuries from another. Nutritional ph screening: No deficits noted. Tuberculosis screening: No symptoms or risk factors identified. Fall Risk None identified. Assessment: 09:08 General: Appears in no apparent distress. uncomfortable, Behavior is calm, cooperative, ph appropriate for age. Pain: Complains of pain in headache. Neuro: Level of Consciousness is awake, alert, obeys commands, Oriented to person, place, time, situation, Reports headache. Cardiovascular: Capillary refill < 3 seconds in bilateral fingers Patient's skin is warm and dry. Respiratory: Airway is patent Respiratory effort is even, unlabored, Respiratory pattern is regular, symmetrical. GI: Patient currently denies abdominal pain, nausea, vomiting. EENT: Reports nasal congestion. Derm: Skin is intact, is healthy with good turgor, Skin is pink, warm \T\ dry. Musculoskeletal: Circulation, motion, and sensation intact. Range of motion: intact in all extremities. 10:40 Reassessment: Notified ANTHONY Huang that Flu A test is positive. ss Vital Signs: 08:35 BP 127 / 82; Pulse 96; Resp 17; Temp 99.4(O); Pulse Ox 100% on R/A; Weight 74.84 kg; ll1 Height 5 ft. 7 in. (170.18 cm); Pain 10/10; 09:12 BP 132 / 90; Pulse 90; Resp 18; Pulse Ox 98% on R/A; ph 10:54 BP 128 / 78; Pulse 86; Resp 18; Temp 98.0; Pulse Ox 99% on R/A; ph 08:35 Body Mass Index 25.84 (74.84 kg, 170.18 cm) ll1 ED Course: 08:27 Patient arrived in ED. ds1 08:30 Sal De Jesus PA is PHCP. jmm 08:30 Ilir Marin MD is Attending Physician. jmm 08:31 Julianna Oconnor, KARL is Primary Nurse. ph 08:35 Arm band placed on Patient placed in an exam room, on a stretcher. ll1 08:37 Triage completed. ll1 09:06 Patient has correct armband on for positive identification. Bed in low position. Call ph light in reach. Side rails up X 1. Pulse ox on. NIBP on. 09:12 No provider procedures requiring assistance completed. Patient did not have IV access ph during this emergency room visit. Administered Medications: 09:04 Drug: Ibuprofen 600 mg Route: PO; ph 09:14 Follow up: Response: No adverse reaction ph Outcome: 10:42 Discharge ordered by MD. hunter 10:52 Discharged to home ambulatory. ph 10:52 Condition: good 10:52 Discharge instructions given to patient, Instructed on discharge instructions, follow up and referral plans. Demonstrated understanding of instructions, follow-up care, medications, Prescriptions given X 2. 10:58 Patient left the ED. ph Signatures: Sal De Jesus PA PA jmm Sanford, Demi ds1 Mary Alvarado RN RN ss Julianna Oconnor RN RN ph Loida Red RN RN ll1
--- NOTE | 2021-06-10 10:43 | EDPHYS ---
Physician Documentation [facility] Name: Maria Antonia Dotson Age: 41 yrs Sex: Female : 1980 Arrival Date: 06/10/2021 Time: 08:27 Bed 16 Private MD: ED Physician Ilir Marin HPI: 06/10 08:34 This 41 yrs old Female presents to ER via Ambulatory with complaints of Headache, Body jmm Aches. 08:34 The patient complains of pain to the forehead. Onset: The symptoms/episode jmm began/occurred gradually, 2 day(s) ago. Associated signs and symptoms: Pertinent positives: fever. The symptoms are alleviated by nothing. the symptoms are aggravated by nothing. This is a 41 year old female with a history of htn that presents to the ED with complaints of cough, sore throat, headache beginning approx 2 days ago. . Historical: - Allergies: 08:35 PENICILLINS; ll1 08:35 Tramadol HCl; ll1 - PMHx: 08:35 Hypertensive disorder; ll1 - PSHx: 08:35 Appendectomy; Cholecystectomy; ll1 - Immunization history:: Client reports receiving the 2nd dose of the Covid vaccine. - Social history:: Smoking status: Patient reports the use of cigarette tobacco products, smokes one-half pack cigarettes per day. ROS: 08:34 Constitutional: Positive for body aches, chills. jmm 08:34 ENT: Positive for sinus congestion, sore throat. 08:34 Respiratory: Positive for cough. 08:34 All other systems are negative. Exam: 08:34 Constitutional: This is a well developed, well nourished patient who is awake, alert, jmm and in no acute distress. Head/Face: atraumatic. Eyes: EOMI, no conjunctival erythema appreciated 08:34 Neck: Trachea midline, Supple Chest/axilla: Normal chest wall appearance and motion. Cardiovascular: Regular rate and rhythm. No edema appreciated Respiratory: Normal respirations, no respiratory distress appreciated Abdomen/GI: Non distended, soft Back: Normal ROM Skin: General appearance color normal MS/ Extremity: Moves all extremities, no obvious deformities appreciated, no edema noted to the lower extremities Neuro: Awake and alert Psych: Behavior is normal, Mood is normal, Patient is cooperative and pleasant 08:34 ENT: TM's: erythema, that is mild, bilaterally, Posterior pharynx: erythema, that is mild. Vital Signs: 08:35 BP 127 / 82; Pulse 96; Resp 17; Temp 99.4(O); Pulse Ox 100% on R/A; Weight 74.84 kg; ll1 Height 5 ft. 7 in. (170.18 cm); Pain 10/10; 09:12 BP 132 / 90; Pulse 90; Resp 18; Pulse Ox 98% on R/A; ph 10:54 BP 128 / 78; Pulse 86; Resp 18; Temp 98.0; Pulse Ox 99% on R/A; ph 08:35 Body Mass Index 25.84 (74.84 kg, 170.18 cm) ll1 MDM: 08:34 Patient medically screened. [facility] 10:41 Data reviewed: vital signs, nurses notes. Counseling: I had a detailed discussion with carlos manuel the patient and/or guardian regarding: the historical points, exam findings, and any diagnostic results supporting the discharge/admit diagnosis, lab results, the need for outpatient follow up, to return to the emergency department if symptoms worsen or persist or if there are any questions or concerns that arise at home. ED course: Patient is alert and non toxic in appearance in the ED. No signs of resp distress. Advised to follow up with pcp and otherwise given strict return precautions. patient understood and agrees with the plan of care. . 06/10 08:48 Order name: COVID-19/FLU A+B (Document "Date of Onset" if Symptomatic); Complete Time: [facility] 10:40 06/10 08:48 Order name: Strep; Complete Time: 10:08 [facility] 06/10 10:09 Order name: Throat Culture EDMS Administered Medications: 09:04 Drug: Ibuprofen 600 mg Route: PO; ph 09:14 Follow up: Response: No adverse reaction ph Disposition: 13:25 Co-signature as Attending Physician, Ilir Marin MD I agree with the assessment and kdr plan of care. Disposition Summary: 06/10/21 10:42 Discharge Ordered Location: Home [facility] Condition: Stable [facility] Diagnosis - Influenza A [facility] Followup: [facility] - With: Private Physician - When: 2 - 3 days - Reason: Recheck today's complaints, Continuance of care, Re-evaluation by your physician Discharge Instructions: - Discharge Summary Sheet [facility] - Influenza, Adult [facility] Forms: - Medication Reconciliation Form jmm - Thank You Letter jmm - Antibiotic Education jmm - Prescription Opioid Use jmm - Work release form Prescriptions: - Tamiflu 75 mg Oral Capsule - take 1 tablet by ORAL route every 12 hours for 5 days; 10 tablet; Refills: 0, [facility] Product Selection Permitted - promethazine-DM - take 5 milliliter by ORAL route every 4-6 hours; 120 milliliter; Refills: 0, [facility] Product Selection Permitted Signatures: Dispatcher [employer] Ilir Blunt MD MD kdr Mickail, Joel, PA PA jmm Hall, Patricia, RN RN Loida Red RN RN ll1
[2021-06-10 11:16] VITALS: BP 128/78; TEMP 98; O2SAT 99
== END 2021-06-10 10:58 | disposition home or self-care (01) ==
LOC: ER 08:25
DX: J10.1 Influenza due to other identified influenza virus with other respiratory manifestations (principal); I10 Essential (primary) hypertension; F17.210 Nicotine dependence, cigarettes, uncomplicated; Z20.822 Contact with and (suspected) exposure to COVID-19; Z88.0 Allergy status to penicillin; Z88.5 Allergy status to narcotic agent
CPT/HCPCS: 0240U; 87070; 87081; 99283

== ENCOUNTER 2021-11-09 09:53 | Emergency (ER) | payer SELFPAY ==
[2021-11-09] MEDS ORDERED: ONDANSETRON 4 MG/2 ML VIAL ONE (10:38)
[2021-11-09] MEDS ORDERED: NA CHLORIDE 0.9% 1,000 ML ONE ×2 (10:38→12:18)
[2021-11-09] MEDS ORDERED: FENTANYL CITR 100 MCG/2 ML ONE (10:43)
[2021-11-09 10:59] LABS: Absolute Lymphocytes (CBC) 1.4 K/uL (0.7-4.9); Hematocrit 32.4 % (36.0-45.0); Lymphocytes % 30.6 % (15.3-44.8); MCV 78.2 fL (80-100); MPV 6.9 fL (7.6-11.3); RBC Red Blood Cell Count 4.14 M/uL (3.86-4.86)
[2021-11-09 11:02] LABS: Protime INR 1.09
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
--- NOTE | 2021-11-09 11:06 | RAD REPORT ---
EXAM DESCRIPTION: Jarad Single View11/09/2021 10:45 am CLINICAL HISTORY: Chest pain COMPARISON: none FINDINGS: The lungs appear clear of acute infiltrate. The heart is normal size IMPRESSION: No acute abnormalities displayed
[2021-11-09 11:21] LABS: Albumin 3.8 g/dL (3.4-5.0); Bilirubin Direct 0.2 mg/dL (0-0.2); Bilirubin Total 0.4 mg/dL (0.2-1.0); Magnesium 2.5 mg/dL (1.8-2.4); Potassium 3.3 mmol/L (3.5-5.1); Protein, Total 7.7 g/dL (6.4-8.2)
[2021-11-09] MEDS ORDERED: MORPHINE 4 MG/ML SYR ONE (12:16)
[2021-11-09 14:08] LABS: Urine Blood 3+ (Negative); Urine Glucose Negative (Negative); Urine Protein Negative (Negative)
[2021-11-09 14:41] LABS: Urine Bacteria <20 /HPF (<20); Urine Mucus Slight /HPF (None Seen)
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
--- NOTE | 2021-11-10 17:29 | EKG ---
Test Date: 2021-11-09 Test Time: 10:59:49 Funeral Arrangement Director: HEBER MEASUREMENT RESULTS: Intervals: Rate: 73 [place]: 184 QRSD: 90 QT: 414 QTc: 456 [place]: P: 67 [place]: 184 QRS: 69 T: 90 INTERPRETIVE STATEMENTS: Normal sinus rhythm Normal ECG Compared to ECG 02/24/2021 11:00:51 Left ventricular hypertrophy no longer present Electronically Signed On 11-10-21 17:26:52 CDT by Jarod Soler
== END 2021-11-09 15:52 | disposition home or self-care (01) ==
LOC: ER 09:53
DX: T25.122A Burn of first degree of left foot, initial encounter (principal); T25.121A Burn of first degree of right foot, initial encounter; T75.4XXA Electrocution, initial encounter; F17.210 Nicotine dependence, cigarettes, uncomplicated; Z88.0 Allergy status to penicillin; Z88.5 Allergy status to narcotic agent
CPT/HCPCS: 36415; 70450; 71045; 72125; 80048; 80076; 81003; 81015; 81025; 82550; 83605; 83735; 84484; 85025; 85610; 93005; 96361; 96374; 96375; 99284; J2405; J3010; J7030

== ENCOUNTER 2021-11-13 20:22 | Emergency (ER) | payer SELFPAY ==
--- OUTSIDE RECORDS SUMMARY | 2021-11-13 20:27 | XMS REPORT | Continuity of Care Document ---
:1980 Author Organization [facility] t Address [address] [place] [address] Care Team Providers Name Role Phone Kristen Strong DO Attending Clinician MERCY ROSEN Attending Clinician Unavailable David Hodge Attending Clinician Unavailable JOSE DARDEN Attending Clinician Unavailable BIENVENIDO HOOVER Attending Clinician Unavailable MERCY ROSEN Admitting Clinician Unavailable David Hodge Admitting Clinician Unavailable JOSE DARDEN Admitting Clinician Unavailable BIENVENIDO HOOVER Admitting Clinician Unavailable Payers Payer Name Policy Type Policy Number Effective Date Expiration Date S ource MEDICAID OF [place] [id number] 2015 2015 00:00:00 00:00:00 Problems Condition Condition Condition Status Onset Resolution Last Treating Co mments Source Name Details Category Date Date Treatment Clinician Date Active Active Disease Active 2014-02 Univers labor labor 2-11 ity of 00:00: [address] 37 weeks 37 weeks Disease Active 2014-02 Unive rs gestation gestation 2-11 ity of of of 00:00: [place] 00 [facility] No No Disease Active 2014-02 Univers 2-11 ity of care in care in 00:00: [place] current current 00 Medical Bran ch Anemia Anemia Disease Active 2014-02 Univers 2-11 ity of 00:00: [address] Liveborn Liveborn Disease Active 2014-02 Unive rs , of infant, of 2-11 it y of cantu [place]u [place] , , 00 [place] dical born in born in [facility] by vaginal by vaginal delivery delivery Disease Active 2014-02 U nivers hemorrhage hemorrhage 2-11 it y of 00:00: [address] Allergies, Adverse Reactions, Alerts Allergy Allergy Status Severity Reaction(s) Onset Inactive Treating Comm ents Source Name Type Date Date Clinician Tramadol Drug Active Nausea 2014-02 Patient Univers Intolera and/or 2-13 begins ity of nce Vomiting 00:00: nausea [place] 00 and Medical vomiting Branch shortly after taking Ultram. TRAMADOL DRUG Active Med N/V 2014-02 Univers INGREDI 2- ity of 00:00: [place] 00 Medical Branch Penicill Propensi Active Unknown - 2014-02 Uni vers in ty to See comments 03-27 ity of adverse 00:00: [place] reaction 00 Medical s Branch PENICILL DRUG Active Unknown-Cmnt 2014-02 Un ozzy IN INGREDI 03-27 ity of 00:00: [place] 00 Medical Branch Social History Social Habit Start Date Stop Date Quantity Comments Source Exposure to Not sure [facility] SARS-CoV-2 [facility] [place] [facility] (event) Branch Alcohol intake 2015-01-25 2015-01-25 Current drinker Unive rsity of 00:00:00 00:00:00 of alcohol [facility] [place] [facility] (finding) [place] Alcohol Comment 2015-01-24 2015-01-24 social Universit y of 00:00:00 00:00:00 [facility] Sex Ass[birth year] At [birth year] Universit y of 00:00:00 00:00:00 [facility] Smoking Status Start Date Stop Date Source Current every day smoker 2015-01-25 00:00:00 Uni versity of [facility] Medications Ordered Filled Start Stop Current Ordering Indication Dosage Frequency Signature Comments Components Source Medication Medication Date Date Medication? Clinician (SIG) Name Name 2014-02 Yes 1{tbl} Take 1 Tab U nivers vitamin 2-14 by mouth ity of w/FA 00:00: daily. [place] (PRENATABS 00 Medical RX) tablet Branch docusate 2014-02 Yes 240mg Take 1 Cap Un ozzy calcium 2-14 by mouth ity of (SURFAK) 00:00: once daily Luis Antonio as 240 mg 00 as needed Medical capsule for Branch Constipati on. ferrous 2014-02 Yes 325mg Take 1 Tab Uni vers sulfate 325 2-14 by mouth 2 it y of mg (65 mg 00:00: (two) [place] iron) 00 times Medical tablet daily. Branch ibuprofen 2014-02 Yes 600mg Take 1 Tab U nivers (MOTRIN) 2-14 by mouth ity of 600 mg 00:00: every 6 [place] tablet 00 (six) Medical hours as Branch needed for Pain (scale 1-3) or Pain (scale 4-6). Take with food or milk. Vital Signs Vital Name Observation Time Observation Value Comments Source Systolic blood 2020-08-01 17:33:34 146 mm[Hg] Univer sity of pressure [facility] Diastolic blood 2020-08-01 17:33:34 94 [facility]Hg[facility] 2020-08-01 17:33:34 93 /min [facility] Body temperature 2020-08-01 17:33:34 36.83 Miri [facility] Respiratory rate 2020-08-01 17:33:34 17 /min [facility] Body height 2020-08-01 17:31:[address] [facility] Body weight 2020-08-01 17:31:[address] [facility] BMI 2020-08-01 17:31:00 28.51 kg/m2 [facility] Oxygen saturation in 2020-08-01 17:31:00 100 /min [facility] Arterial blood by [facility] Pulse oximetry [place] Procedures Procedure Date / Time Performing Clinician Source Performed POCT TEST 2020-08-01 17:48:00 Kristen Strong [facility] URINE DRUG (IMMUNOASSAY) 2020-08-01 17:40:00 Kristen Strong [facility] DRUG [facility] SCREEN Encounters Start End Encounter Admission Attending Care Care Encounter Source Date/Time Date/Time Type Type Clinicians Facility Department ID 2020-08-01 2020-08-01 Emergency Tae WIJOHN [id number] [facility] 12:35:00 14:16:00 Kristen Felipe [id number] joi [facility] [id number] [facility] [id number] [facility] 084 Branch 2020-08-01 2020-08-01 Emergency X [facility] ERT [id number] Univers 12:19:00 12:19:00 joi [facility] 2015-01-24 2015-01-27 Inpatient BIENVENIDO HAN [facility] CHENCHO [id number] Univers 15:43:00 19:08:00 [facility] Results Test Description Test Time Test Comments Results Result Comments Source URINE DRUG (IMMUNOASSAY) - COMPREHENSIVE DRUG SCREEN 2020-07 18:47:50 Test Item Value Reference Range Interpretation Comme nts AMPHET (test code = 0279584062) Presumptive Positive Negative A STAN U (test code = 9714079745) Negative Negative BENZO U (test code = 0921998529) Negative Negative Cocaine Metabolite (test code = Negative Negative 0392584319) METHADONE (test code = 6893715437) Negative Negative OPIATES (test code = 1502322219) Negative Negative PCP (test code = 1822883022) Negative Negative THC (test code = 9346404213) Presumptive Positive Negative A LISSETTE (test code = LISSETTE) Urine Drug Cutoff Ranges Cocaine: ? 150 ng/mLBenzodiazepines: ? ? 200 ng/mLMethadone: ? 300 ng/mLAmphetamine: ? 1,000 ng/mLOpiates: ? 300 ng/mLCannabinoids: ?50 ng/mLPhencyclidine: ? ? ? 25 ng/mLBarbiturates: ?200 ng/mL The results are to be used only for medical (i.e., treatment) purposes. Unconfirmed screening results must not be used for non-medical purposes (e.g., employment testing, legal testing). Lab Interpretation (test code = Abnormal 14946-0) [facility] [id number] 17:48:00 Test Item Value Reference Range Interpretation Comments POCT PREG (test code = 1605) negative On board controls acceptable with present C Line (test code = 3574) POCT PREG LOT # (test code = 3575) [id number] POCT PREG TEST DATE (test code = 3576) Lab Interpretation (test code = Normal 65371-3) [facility]307 SURGICAL PATHOLOGY, LEVEL [id number] 13:00:[address] [address] Laboratory Printed: 03/20/19 1300 BK DAEMPathology Page: 1 Patient: BENJAMIN CHRISTINE Birthdate: 1980 Age/Sex: 39/F Spec#: [id number]: MERCY ROSEN MD Specimen Date: 03/16/19Received Date: 03/19/19 Specimen: PLACENTA, THIRD TRIMESTER CLINICAL DIAGNOSIS 41 week IUP, in laborPATHOLOGIC DIAGNOSIS Placenta, vaginal delivery, clinical trimester third. Gross/microscopically determined trimester: Third. Gross features of placental disc: - Weight -- 662 gm. - Thickness -- 3.4 cm. - Shape/morphology -- Discoid. Gross features of umbilical cord: - Insertion -- Eccentrically, 6.0 cm from the closest edge of the placenta. - Number of vessels -- Three. - Length -- 30.0 cm. - Diameter -- 1.0 cm. Insertion of membrane: Half at the edge of the placenta and the other half away fromthe edge of the placenta. Microscopic findings: - Placental villi -- Infarct. - membranes --Mild focal acute chorioamnionitis. - Decidua -- Within normal limits. - Maternal vessels -- Within normal limits. - Umbilical cord -- Within normal limits. Pathologist:Kilo Morris MD Patient: BENJAMIN CHRISTINE Re03/16/19Loc: GraysonW MR#: [id number] CONTINUED ON NEXT PAGE Dis: 03/18/19ta: DIS IN [facility] [address] [facility] Cristhian [place] [address] Laboratory Printed: 03/20/[address] [place] [address] DAEMPathology Page: 2 Patient: JAVIER CHRISTINESARAH [id number] (Continued) PATHOLOGIC DIAGNOSIS (Continued) Entered by:03/20/19 - 123[facility]ALTH CAREJoseYGP PROCEDURES: [id number] GROSS DESCRIPTION A. PLACENTA, THIRD TRIMESTER PLACENTA AND CORD The specimen is received in 10% formalin and is labeled with the patient's name and"placenta and cord." The specimen consists of a discoid-shaped, cantu placenta weighing 662 grams andmeasuring 20.0 x 18.0 x 3.4 cm in greatest dimensions. The umbilical cord is insertedeccentrically, 6.0 cm from the closest edge of the placenta and measures 30.0 cm in lengthand 1.0 cm in average diameter. Cross sectioning of the umbilical cord revealsthreevessels and it appears grossly unremarkable. The membrane appears to be inserted atthe edge of half of the placenta, whereas the other appears to be be inserted away from theedge of the placenta as there is a diffused white ring formed at the point of insertion.The maximum distance from theedge of the placenta to the point of insertion is 1.5 cm. Thefetal surface of the placenta has the usual vascular pattern. It is mccormick to dark purple incolor. The maternal aspect of the placenta has normal-appearing red-maroon cotyledons. Theplacenta is serially sectioned and reveals a red-maroon, spongy cut surface. No discretelesion or mass is identified. Performance Improvement Specialist sections are submitted in three cassettes. Section code:A1 - cord and membraneA2 - aspect of the placentaA3 - maternal aspectof the placenta Fused white ring area marked with black ink in cassette A2. Dictated by: SINCERE JAMES Patient: BENJAMIN CHRISTINE Re03/16/19Loc: 3SW MR#: [id number] CONTINUEDON NEXT PAGE Dis: 03/18/19ta: DIS IN [address] [address] Laboratory Printed: 03/20/[address] [place] [address] DAEMPathology Page: 3 Patient: BENJAMIN CHRISTINE [id number] (Continued) GROSS DESCRIPTION (Continued) Entered by: 03/19/19 - 1232LABJoseYGP MICROSCOPIC DESCRIPTION A microscopic examination was performed to arrive at the diagnostic conclusion reported. Signed (Electronically Signed) Kilo Morris MD 03/20/19 --------- --- Patient: BENJAMIN CHRISTINE Re03/16/19Loc: 3SW MR#: [id number] END OF REPORT Dis: 03/18/19ta: DIS INChemistry - Urine 2019-03-17 11:36:00 Test Item Value Reference Range Interpretation Comments Chemistry - Urine 49.76 mg/dL 47-110 N NOTE: Conc entration is (test code = based on a timo y urine URCREAT) output of1.5 Li ters. Comment add onChemistry - [id number] 11:36:00 Test Item Value Reference Range Interpretation Comments Chemistry - Urine (test code = URTP) 15 mg/dL 1-14 H Comment add onReference Lab [id number] 08:11:00 Test Item Value Reference Range Interpretation Comments Reference Lab Less than 0.90 Immune >0.99 L Non-immune <0.90 Testing (test code index Equivocal 0.90 - = RUBTTR) 0.99 Immune >0.99Performed at: [facility] [address], [place] [id number] Director: Vinod Barnes MD, Phone: [phone] [id number] 06:11:00 Test Item Value Reference Range Interpretation Comments Hematology (test code = WBCT) 10.2 thou/uL 4.8-10.8 N Hematology (test code = RBCT) 3.43 mill/uL 4.20-5.40 L Hematology (test code = HGBT) 10.1 g/dL 12.0-16.0 L Hematology (test code = HCTT) 29.9 % 36.0-47.0 L Hematology (test code = MCV) 87.0 fL 78.0-98.0 N Hematology (test code = MCH) 29.3 pg 27.0-31.0 N Hematology (test code = MCHC) 33.6 g/dL 32.0-36.0 N Hematology (test code = RDW) 12.6 % 11.5-14.5 N Hematology (test code = PLTT) 269 thou/uL 130-400 N Hematology (test code = MPV) 8.2 fL 7.4-10.4 N Chemistry - [id number] 16:19:00 Test Item Value Reference Range Interpretation Comments Chemistry - Specials (test Non-Reactive S/CO NonReactive code = THBSAG) [id number] 14:59:00 Test Item Value Reference Range Interpretation Comments Toxicology Detected NotDetected A (test code = YULIANA) Toxicology Not Detected NotDetected (test code = PCP) Toxicology Not Detected NotDetected (test code = COCN) Toxicology Detected NotDetected A (test code = METHAMPU) Toxicology Not Detected NotDetected (test code = OPIA) Toxicology Detected NotDetected A (test code = AMPHU) Toxicology Not Detected NotDetected (test code = DAVID) Toxicology Not Detected NotDetected (test code = TRICY) Toxicology Not Detected NotDetected (test code = MTD) Toxicology Not Detected NotDetected (test code = STAN) Toxicology Not Detected NotDetected (test code = OXYCOD) Toxicology Not Detected NotDetected (test code = PPX) Toxicology The [employer] Pro file-V Panel (test code = for Qualitative Drugs MTCUTOFF) ofAbuse assays are for presumptive scr eening testing only.Th e drug class and detec tion limits are as follows: Drug Class Detection Limit Amphetamine 500 ng/mL*Yina turates 200 ng/mLBenzodiaze pines 150 ng/mL*Cocaine 1 50 ng/mL*Methamphe tamine 500 ng/mL*Methadone 200 ng/mL*Opiates 1 00 ng/mL*Oxycodone 100 ng/mLPCP 25 ng/mLPropoxyphe ne 300 ng/mLTricyclic Antidepressants 300 ng/mLCannabinoi ds (THC) 50 ng/mLTests whic h yield a presumptive pos itive result must bet ested using a more specific alternate chemical method inorder to obtain a confir med analytical resu lt. Additionalconfi rmation and identification may be ordered on a ro utinebasis, if desired. Pre sumptive positive urines are held fortwo weeks. Comment STATUrine Source: Urine Straight [id number] 14:49:00 Test Item Value Reference Range Interpretation Comments Urinalysis (test code = Light-Yellow Yellow UACLR) Urinalysis (test code = Clear Clear UACLY) Urinalysis (test code = SPGR) 1.015 1.002-1.036 N Urinalysis (test code = MIKALA) 6.5 5.0-9.0 N Urinalysis (test code = Negative Dexter/uL Negative UALEU) Urinalysis (test code = Negative Negative UANIT) Urinalysis (test code = 10 mg/dL Neg-Trace PROUADIP) Urinalysis (test code = Normal mg/dL Negative GLUCU) Urinalysis (test code = KETU) Negative mg/dL Negative Urinalysis (test code = Normal mg/dL Less than 2 UAUROB) Urinalysis (test code = Negative Negative UABIL) Urinalysis (test code = Negative Negative UABLD) Urinalysis (test code = 0-3 HPF 0-3 UARBC) Urinalysis (test code = 0-3 HPF 0-3 UAWBC) Urinalysis (test code = 0-3 HPF 0-3 UASQUAM) Urinalysis (test code = None Seen HPF None Seen UABAC) Comment STATUrine Source: Urine Straight CatheterChemistry - [id number] 13:07:00 Test Item Value Reference Range Interpretation Comments Chemistry - Specials Reactive NonReactive (test code = HBSABINT) Chemistry - Specials 645.43 mIU/mL REFERE NCE RANGES for (test code = HBSAB (Hepatiti s B HBSABCONC) Surface Antibody):Nonre activ e: 0.0 - <8.0 Individual is considered NOT immune to HBV infectionIndete rmina te: >= 8.0 - <1 2.0 The immune stat us of the individual should be furth er assessed by follow-up testing.Reactiv e: >= 12.0 Individual is considered immu ne to HBV infection. [id number] 12:23:00 Test Item Value Reference Range Interpretation Comments Immunology (test code = SYPHABT) Nonreactive Nonreactive [id number] 12:21:00 Test Item Value Reference Range Interpretation Comments Chemistry (test code 135 mmol/L 136-145 L = NA-T) Chemistry (test code 4.6 mmol/L 3.5-5.1 N = K-T) Chemistry (test code 105 mmol/L 98-107 N = CL) Chemistry (test code 23 mmol/L 22-29 N = CO2) Chemistry (test code 12 mmol/L 10-20 N = ANGP) Chemistry (test code 9 mg/dL 7.0-18.7 N = BUN) Chemistry (test code 0.72 mg/dL 0.6-1.1 N = CREATT) Chemistry (test code 90 Referen ce Range for = EGFRMDRD) Estimated GFR: Greater than 90 mL/min/ 1.73 m2NOTE:The MDRD equation has no t been validated for u se with theelderly (ove r 70 years of age), women, patients with serious comorbi d condition or pe rsons with extremes o fbody size, muscle ma ss, or nutritional sta tus. Chemistry (test code 86 mg/dL 70-105 N = GLU-T) Chemistry (test code 8.0 mg/dL 7.8-10.44 N = CA) Chemistry (test code 0.4 mg/dL 0.2-1.2 N = TBILI-T) Chemistry (test code 6.3 g/dL 6.0-8.3 N = TP) Chemistry (test code 3.3 g/dL 3.5-5.0 L = ALB) Chemistry (test code 3.0 g/dL 2.4-3.5 N = GLOB) Chemistry (test code 1.1 g/dL 1.2-2.2 L = AG) Chemistry (test code 233 U/L 40-110 H = ALP) Chemistry (test code 16 U/L 5-34 N = AST) Chemistry (test code 13 U/L 8-55 N = ALT) Comment please use blood in labType [id number] 12:20:00 Test Item Value Reference Range Interpretation Comments Blood Type Rh (test code = BT) O POSITIVE Antibody Screen (test code = ABSC) NEGATIVE Received Blood Or Been w/in Past 90 Days? [id number] 11:51:00 Test Item Value Reference Range Interpretation Comments Hematology (test code = WBCT) 14.6 thou/uL 4.8-10.8 H Hematology (test code = RBCT) 4.03 mill/uL 4.20-5.40 L Hematology (test code = HGBT) 11.5 g/dL 12.0-16.0 L Hematology (test code = HCTT) 34.9 % 36.0-47.0 L Hematology (test code = MCV) 86.6 fL 78.0-98.0 N Hematology (test code = MCH) 28.4 pg 27.0-31.0 N Hematology (test code = MCHC) 32.8 g/dL 32.0-36.0 N Hematology (test code = RDW) 12.6 % 11.5-14.5 N Hematology (test code = PLTT) 299 thou/uL 130-400 N Hematology (test code = MPV) 8.4 fL 7.4-10.4 N Bacterial [id number] 11:55:00 Test Item Value Reference Range Interpretation Comments Bacterial Culture Haemophilus (test code = BACTC) species,Organism identification: Bacterial Culture Haemophilus (test code = BACTC1) parainfluenza/parahaemo lyticus. Bacterial Culture NF (test code = BACTC1) Bacterial Culture RA NVF (test code = BACTC1) O:HASPE (test code = Haemophilus species HASPE) Bacterial Culture QUANTITATION: (test code = BACTC1.1) Bacterial Culture Moderate (test code = BACTC1.1) PLEASE FAX RESULTS TO DR HODGE [phone] PRINT TO [employer] FROM 03/14/17 OSMIN ANDRE REQUESTED FAX REPORTS SENT TO [facility] ALSOCPT Modifier: 59Culture, [id number] 11:55:00 Test Item Value Reference Range Interpretation Comments Culture, Anaerobe Anaerobic Gram Negative (test code = Alonso#2: IN BROTH SUBCULTURE ANAER) ONLY Culture, Anaerobe clinically indicated. (test code = ANAER2) O:FUSP (test code Fusobacterium species = FUSP) Culture, Anaerobe QUANTITATION: (test code = ANAER2.1) Culture, Anaerobe Few (test code = ANAER2.1) O:PEMIC (test code Peptostreptococcus micros = PEMIC) Culture, Anaerobe QUANTITATION: (test code = ANAER2.2) Culture, Anaerobe Few (test code = ANAER2.2) O:ANGNR (test code Anaerobic Gram Negative Alonso = ANGNR) Culture, Anaerobe QUANTITATION: (test code = ANAER2.3) Culture, Anaerobe Nutrient Broth Only (test code = ANAER2.3) PLEASE FAX RESULTS TO DR HODGE [phone] PRINT TO [employer] FROM 03/14/17 OSMIN ANDRE REQUESTED FAX REPORTS SENT TO [facility] ALSOCPT Modifier: [id number] SURGICAL PATHOLOGY, LEVEL [id number] 16:11:00 [id number] [place] [address] Laboratory Printed: 03/17/17 [address] [facility] DAEMPathology Page: 1 Patient: BENJAMIN CHRISTINE Birthdate: 1980 Age/Sex: 37/F Spec#: [id number]: David Hodge MD Specimen Date: 03/14/17 Received Date: 03/16/17 Specimen: PLACENTA, THIRD TRIMESTER CLINICAL DIAGNOSIS chorioamnionitisPATHOLOGIC DIAGNOSIS Placenta, spontaneous vaginal delivery, clinical trimester third: Gross/microscopically determined trimester: Third. Gross features of placental disc: - Weight -- 344 grams. - Thickness -- 2.0 cm. - Shape/morphology -- Discoid. Gross features of umbilical cord: - Insertion -- Eccentrically 3.0 cm from the nearest margin. - Number of vessels -- Three. - Length -- 22.0 cm. - Diameter -- 1.0 cm. Insertion of membrane: At the edger of the placenta. Microscopic findings: - Place ntal villi -- No evidence of villitis. - membranes -- Severe chorioamnionitis. - Decidua -- Unremarkable. - Maternal vessels -- Unremarkable. - Umbilical cord -- Severe funisitis. Pathologist:Olga Zuleta MD Entered by:03/17/17 - 1526 LAB.YGP Patient: BENJAMIN CHRISTINE Re03/14/17Loc: DARION MR#: [id number] CONTINUED ON NEXT PAGE Dis: 03/16/17ta: DIS IN [address] [place] [address] Laboratory Printed: 03/17/[address] [place] [address] [facility] Page: 2 Patient: BENJAMIN CHRISTINE MANDEEP [id number] (Continued) PROCEDURES: [id number] GROSS DESCRIPTION A. PLACENTA, THIRD TRIMESTER PLACENTA AND CORD The specimen is received in 10% formalin, and is labeled with the patient's name and"placenta and cord". The specimen consists of a singlediscoid shaped placenta with atrimmed weight of 344 grams. The placenta measures 17.0 x 15.0 x 2.0 cm in greatestdimensions. The cord is inserted eccentrically 3.0 cm from the nearest margin. Theumbilical cord measures 22.0 cm in length with a 1.0 cm diameter. Cut sectioning of theumbilical cord reveals three vessels. The membrane is inserted at the edge of theplacenta. It is thin and semi-translucent with a slight mucoid consistency. The fetalaspects of the placenta have a normal-appearing vascular pattern. It is mccormick to dark purplein color with no gross abnormalities. The maternal aspects have a normal-appearing red-maroon cotyledon. Upon cut sectioning it reveals a red-maroon spongy cut surface with nodiscrete lesions or masses grossly identified. Performance Improvement Specialist sections are submitted inthree cassettes, A1-3. Section code:A1 - cord and membraneA2 - aspectsA3 - maternal aspects Dictated by: Mara Hearn Entered by: 03/16/17 - 1230 LAB.YGP MICROSCOPIC DESCRIPTION A microscopic examination was performed to arrive at the diagnostic conclusion reported. Signed (Electronically Signed) Olga Zuleta MD 03/17/17 Patient: BENJAMIN CHRISTINE Re03/14/17Loc: DARION MR#: [id number] END OF REPORT Dis: 03/16/17ta: DIS INCulture, [id number] 08:57:00 Test Item Value Reference Range Interpretation Comments Culture, Urine (test code = URC) NG48 [id number] 11:19:00 Test Item Value Reference Range Interpretation Comments Urinalysis (test code = Red Yellow A UACLR) Urinalysis (test code = Cloudy Clear UACLY) Urinalysis (test code = 1.020 1.005-1.030 N SPGR) Urinalysis (test code = 7.0 5.0-9.0 N MIKALA) Urinalysis (test code = Moderate Negative A UALEU) Urinalysis (test code = Negative Negative UANIT) Urinalysis (test code = 30 mg/dL Neg-Trace A PROUADIP) Urinalysis (test code = Negative mg/dL Negative GLUCU) Urinalysis (test code = Negative mg/dL Negative KETU) Urinalysis (test code = 1.0 mg/dL 0.2-1.0 UAUROB) Urinalysis (test code = Negative Negative UABIL) Urinalysis (test code = Large Negative A UABLD) Urinalysis (test code = GREATER THAN 50-TNTC 0-3 A UARBC) HPF Urinalysis (test code = 21-50 HPF 0-3 A UAWBC) Urinalysis (test code = 4-6 HPF 0-3 A UASQUAM) Urinalysis (test code = None Seen HPF None Seen UABAC) Urinalysis (test code = NONE SEEN LPF 0-3 Hyaline UACAST) Urine Source: Urine Straight CatheterChemistry - [id number] 02:53:00 Test Item Value Reference Range Interpretation Comments Chemistry - Specials Non-Reactive NonReactive The albarado el screens (test code = HIVT) for HIV-1 p24 Antigen HIV-1/HIV-2Anti body. [id number] 22:22:00 Test Item Value Reference Range Interpretation Comments Hematology (test code = WBCT) 16.1 thou/uL 4.8-10.8 H Hematology (test code = RBCT) 3.65 mill/uL 4.20-5.40 L Hematology (test code = HGBT) 12.0 g/dL 12.0-16.0 N Hematology (test code = HCTT) 35.0 % 36.0-47.0 L Hematology (test code = MCV) 95.8 fl 81.0-99.0 N Hematology (test code = MCH) 32.8 pg 27.0-31.0 H Hematology (test code = MCHC) 34.3 g/dL 32.0-36.0 N Hematology (test code = RDW) 11.6 % 11.5-14.5 N Hematology (test code = PLTT) 287 thou/uL 130-400 N Hematology (test code = MPV) 6.8 fL 7.4-10.4 L Reference Lab [id number] 14:09:00 Test Item Value Reference Range Interpretation Comments Reference Lab Testing 0.96 index Immune >0.99 L A seco nd sample should (test code = RUBTTR) be yuliet ected and tested no less than2-4 weeks. Non-immu ne <0.90 Equivocal 0.90 - 0.99 Immune >0.99Performed at: HD - [facility] [id number] [place], [place] [id number] Di magi: Vinod Barnes MD, Phone: [phone] [id number] 21:32:00 Test Item Value Reference Range Interpretation Comments Chemistry (test 128 mg/dL NOTE: A valu e of > 130 code = [id number]) mg/dL is considered POSITIVE. ADAGu idelines recommend to re screen with a 100g glu cola load iffirst screen is abnormal.Ref: International A ssoc of Diabetes and Pr egnancy StudyGroup Recommendations on the Diagnosis and Classification ofHyperglycemia in . Diab etes Care, Volume 33, Numb er3, April 2009 Culture, Strep Group [id number] 08:27:00 Test Item Value Reference Range Interpretation Comments Culture, Strep Group B (test code = STRPC STBCUL) Culture, Strep Group B (test code = NG STBCUL1) Does Patient Have An Allergy To Penicillin? YESChemistry - [id number] 13:00:00 Test Item Value Reference Range Interpretation Comments Chemistry - Specials (test Non-Reactive S/CO NonReactive code = THBSAG) Comment spec in lab; hepbab ordered in errorChemistry - [id number] 23:48:00 Test Item Value Reference Range Interpretation Comments Chemistry - Specials Non-Reactive NonReactive (test code = HBSABINT) Chemistry - Specials 2.58 mIU/mL REFEREN CE RANGES for (test code = HBSAB (Hepatiti s B HBSABCONC) Surface Antibody):Nonre active : 0.0 - <8.0 Individual is considered NOT immune to HBV infectionIndete rminat e: >= 8.0 - <12 .0 The immune status o f the individual shou ld be further assesse d by follow-up testing.Reactiv e: >= 12.0 Individual is considered immu ne to HBV infection. [id number] 21:23:00 Test Item Value Reference Range Interpretation Comments Immunology (test code = SYPHABT) Nonreactive Nonreactive [id number] 21:09:00 Test Item Value Reference Range Interpretation Comments Accuchek (test code = ACU) 95 mg/dL 70-110 N Type [id number] 20:55:00 Test Item Value Reference Range Interpretation Comments Blood Type Rh (test code = BT) O POSITIVE Antibody Screen (test code = ABSC) NEGATIVE Received Blood Or Been w/in Past 90 Days? [id number] 20:54:00 Test Item Value Reference Range Interpretation Comments Urinalysis (test code = Yellow Yellow UACLR) Urinalysis (test code = Clear Clear UACLY) Urinalysis (test code = 1.020 1.005-1.030 N SPGR) Urinalysis (test code = 7.0 5.0-9.0 N MIKALA) Urinalysis (test code = Negative Negative UALEU) Urinalysis (test code = Negative Negative UANIT) Urinalysis (test code = Negative mg/dL Neg-Trace PROUADIP) Urinalysis (test code = Negative mg/dL Negative GLUCU) Urinalysis (test code = Negative mg/dL Negative KETU) Urinalysis (test code = 0.2 mg/dL 0.2-1.0 UAUROB) Urinalysis (test code = Negative Negative UABIL) Urinalysis (test code = Negative Negative UABLD) Urinalysis (test code = 0-3 HPF 0-3 UARBC) Urinalysis (test code = 0-3 HPF 0-3 UAWBC) Urinalysis (test code = 0-3 HPF 0-3 UASQUAM) Urinalysis (test code = None Seen HPF None Seen UABAC) Urinalysis (test code = 0-3 HYALINE CAST LPF 0-3 Hyaline UACAST) Urine Source: Urine Clean [id number] 20:43:00 Test Item Value Reference Range Interpretation Comments Urinalysis (test code = No Membranes Rupture No Rupture AMNI-T) [id number] 20:22:00 Test Item Value Reference Range Interpretation Comments Hematology (test code = WBCT) 9.9 thou/uL 4.8-10.8 N Hematology (test code = RBCT) 3.49 mill/uL 4.20-5.40 L Hematology (test code = HGBT) 11.6 g/dL 12.0-16.0 L Hematology (test code = HCTT) 33.3 % 36.0-47.0 L Hematology (test code = MCV) 95.4 fl 81.0-99.0 N Hematology (test code = MCH) 33.2 pg 27.0-31.0 H Hematology (test code = MCHC) 34.8 g/dL 32.0-36.0 N Hematology (test code = RDW) 11.3 % 11.5-14.5 L Hematology (test code = PLTT) 251 thou/uL 130-400 N Hematology (test code = MPV) 7.0 fL 7.4-10.4 L [id number] 18:08:00 Test Item Value Reference Range Interpretation Comments Toxicology Not Detected NotDetected (test code = YULIANA) Toxicology Not Detected NotDetected (test code = PCP) Toxicology Not Detected NotDetected (test code = COCN) Toxicology Not Detected NotDetected (test code = METHAMPU) Toxicology Not Detected NotDetected (test code = OPIA) Toxicology Not Detected NotDetected (test code = AMPHU) Toxicology Not Detected NotDetected (test code = DAVID) Toxicology Not Detected NotDetected (test code = TRICY) Toxicology Not Detected NotDetected (test code = MTD) Toxicology Not Detected NotDetected (test code = STAN) Toxicology Not Detected NotDetected (test code = OXYCOD) Toxicology Not Detected NotDetected (test code = PPX) Toxicology The FlyData Pro file-V Panel (test code = for Qualitative Drugs MTCUTOFF) ofAbuse assays are for presumptive scr eening testing only.Th e drug class and detec tion limits are as follows: Drug Class Detection Limit Amphetamine 500 ng/mL*Yina turates 200 ng/mLBenzodiaze pines 150 ng/mL*Cocaine 1 50 ng/mL*Methamphe tamine 500 ng/mL*Methadone 200 ng/mL*Opiates 1 00 ng/mL*Oxycodone 100 ng/mLPCP 25 ng/mLPropoxyphe ne 300 ng/mLTricyclic Antidepressants 300 ng/mLCannabinoi ds (THC) 50 ng/mLTests whic h yield a presumptive pos itive result must bet ested using a more specific alternate chemical method inorder to obtain a confir med analytical resu lt. Additionalconfi rmation and identification may be ordered on a ro utinebasis, if desired. Pre sumptive positive urines are held fortwo weeks. Urine Source: Urine Clean Catch
--- NOTE | 2021-11-13 20:57 | RAD REPORT ---
EXAM DESCRIPTION: RAD - Chest Single View - 11/13/2021 8:47 pm CLINICAL HISTORY: COUGH COMPARISON: Chest Single View dated 11/09/2021 FINDINGS: Lines: None. Lungs: No evidence of edema or pneumonia. Pleural: No significant pleural effusions or pneumothorax. Cardiac: The heart size is within normal limits. Mediastinum: Within normal limits. Bones: No acute fractures. Other: None IMPRESSION: No acute cardiopulmonary disease.
[2021-11-13] MEDS ORDERED: NA CHLORIDE 0.9% 1,000 ML ONE (21:04)
[2021-11-13 21:40] LABS: Absolute Lymphocytes (CBC) 1.6 K/uL (0.7-4.9); Hematocrit 30.8 % (36.0-45.0); Lymphocytes % 34.8 % (15.3-44.8); MCV 78.6 fL (80-100); MPV 7.7 fL (7.6-11.3); RBC Red Blood Cell Count 3.92 M/uL (3.86-4.86)
[2021-11-13 21:41] LABS: Protime INR 0.98
[2021-11-13 21:48] LABS: ALT/SGPT 51 U/L (12-78); AST/SGOT 52 U/L (15-37); Albumin 3.7 g/dL (3.4-5.0); Alkaline Phosphatase 114 U/L (45-117); BUN Blood Urea Nitrogen 16 mg/dL (7-18); Bicarbonate 29 mmol/L (21-32); Bilirubin Direct < 0.1 mg/dL (0-0.2); Bilirubin Total 0.3 mg/dL (0.2-1.0); CKMB Creatine Kinase MB 1.7 ng/mL (1.0-3.6); Creatine Phosphokinase 83 U/L (26-192); Glomerular Filtration Rate 111 ml/min (=/>90); Glucose Level 97 mg/dL (74-106); Magnesium 2.1 mg/dL (1.8-2.4); NT PRO-BNP 77 pg/mL (<125); Protein, Total 7.4 g/dL (6.4-8.2); Sodium Level 137 mmol/L (136-145); Troponin High Sensitivity 3.5 pg/mL (<58.9)
[2021-11-13] MEDS ORDERED: DIPHENHYDRAMINE 50 MG/ML VIAL ONE (22:01)
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
[2021-11-14 10:30] VITALS: TEMP 97.9
[2021-11-14 10:35] VITALS: BP 135/87; O2SAT 97
--- NOTE | 2021-11-15 07:45 | EKG ---
Test Date: 2021-11-13 Test Time: 21:08:52 Research Physicist: MEASUREMENT RESULTS: Intervals: Rate: 72 MI: 186 QRSD: 90 QT: 430 QTc: 470 [place]: P: 58 MI: 186 QRS: 37 T: 71 INTERPRETIVE STATEMENTS: Normal sinus rhythm Normal ECG Compared to ECG 11/09/2021 10:59:49 No significant changes Electronically Signed On 11-15-21 07:43:43 CDT by Jose Antonio Kaur
== END 2021-11-13 22:25 | disposition home or self-care (01) ==
LOC: ER 20:22
DX: T75.4XXS Electrocution, sequela (principal)
CPT/HCPCS: 36415; 71045; 80048; 80076; 82550; 82553; 83735; 83880; 84484; 85025; 85610; 93005; 96374; 99284; J1200; J7030

== ENCOUNTER 2022-12-11 12:33 | Emergency (ER) | payer SELFPAY ==
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
--- OUTSIDE RECORDS SUMMARY | 2022-12-11 13:20 | XMS REPORT | Continuity of Care Document ---
:1980 Author Organization [facility] t Address [address] [facility]. [address] [place] [address] Care Team Providers Name Role Phone Kristen [...] Expiration Date S ource MEDICAID OF [place] [id number] 2015 2015 00:00:00 00:00:00 Problems Condition Condition Condition Status Onset Resolution Last Treating Co mments Source Name Details Category Date Date Treatment Clinician Date Active Active Disease Active 2014-02 Univers labor labor 2-11 ity of 00:00: [address] 37 weeks 37 weeks Disease Active 2014-02 Unive rs gestation gestation 2-11 ity of of of 00:00: [place] 00 [facility] No No Disease Active 2014-02 Univers 2-11 ity of care in care in 00:00: [place] current current 00 Medical Bran ch Anemia Anemia Disease Active 2014-02 Univers 2-11 ity of 00:00: [address] Liveborn Liveborn Disease Active 2014-02 Unive rs , of , of 2-11 [place] d[place] born in born in [facility] by vaginal by vaginal delivery delivery Disease Active 2014-02 U nivers hemorrhage hemorrhage 2-11 it y of 00:00: [place] 00 Medical Branch Allergies, Adverse Reactions, Alerts Allergy Allergy Status Severity Reaction(s) Onset Inactive Treating Comm ents Source Name Type Date Date Clinician Tramadol Drug Active Nausea 2014-02 Patient Univers Intolera and/or 2- begins ity of nce Vomiting 00:00: nausea 00 and Medical vomiting Branch shortly after taking Ultram. TRAMADOL DRUG Active Med N/V 2014-02 Univers INGREDI 03-29 ity of 00:00: [place] 00 Medical Branch Penicill Propensi Active Unknown - 2014-02 Uni vers in ty to See comments 03-27 ity of adverse 00:00: [place] reaction 00 Medical s Branch PENICILL DRUG Active Unknown-Cmnt 2014-02 Un ozzy IN INGREDI 03-27 ity of 00:00: [place] 00 Medical Branch Social History Social Habit Start Date Stop Date Quantity Comments Source Exposure to Not sure [facility] SARS-CoV-2 [facility] [place] [facility] (event) Branch Alcohol intake 2015-01-25 2015-01-25 Current drinker Unive rsity of 00:00:00 00:00:00 of alcohol [facility] [place] [facility] (finding) [place] Alcohol Comment 2015-01-24 2015-01-24 social Universit y of 00:00:00 00:00:00 [facility] Sex Assigned At [birth year] Universit y of 00:00:00 00:00:00 [facility] Smoking Status Start Date Stop Date Source Current every day smoker 2015-01-25 00:00:00 Uni versity of [facility] Medications Ordered Filled Start Stop Current Ordering Indication Dosage Frequency Signature Comments Components Source Medication Medication Date Date Medication? Clinician (SIG) Name Name 2014-02 Yes 1{tbl} Take 1 Tab U nivers vitamin 2-14 by mouth ity of w/FA 00:00: daily. [place] (PRENATABS 00 Medical RX) tablet Branch docusate 2014-02 Yes 240mg Take 1 Cap Un ozzy calcium 2-14 by mouth ity of (SURFAK) 00:00: once daily Luis Antonio as 240 mg 00 as needed Medical capsule for Branch Constipati on. ferrous 2014-02 Yes 325mg Take 1 Tab Uni vers sulfate 325 2-14 by mouth 2 it y of mg (65 mg 00:00: (two) [place] iron) 00 times Medical tablet daily. Branch [...] 17:33:34 146 mm[Hg] Univer sity of pressure [facility] Diastolic blood 2020-08-01 17:33:34 94 mm[Hg] Unive rsity [facility] Heart rate 2020-08-01 17:33:34 93 /min [facility] Body temperature 2020-08-01 17:33:34 36.83 Miri [facility] Respiratory rate 2020-08-01 17:33:34 17 /min [facility] Body height 2020-08-01 17:31:00 170.2 cm [facility] Body weight 2020-08-01 17:31:00 82.555 kg [facility] BMI 2020-08-01 17:31:00 28.51 kg/m2 [facility] Oxygen saturation in 2020-08-01 17:31:00 100 /min [facility] Arterial blood by [facility] Pulse oximetry Branch Procedures Procedure Date / Time Performing Clinician Source Performed POCT TEST 2020-08-01 17:48:00 Kristen Strong [facility] URINE DRUG (IMMUNOASSAY) 2020-08-01 17:40:00 Kristen Strong [facility] DRUG Medical [facility] SCREEN Encounters Start End Encounter Admission Attending Care Care Encounter Source Date/Time Date/Time Type Type Clinicians Facility Department ID 2022-09-17 2022-09-17 Outpatient [facility] [id number] [place] 17:10:32 17:10:32 [id number] [place] 2022-08-31 2022-08-31 Outpatient [facility] [id number] [place] 14:39:10 14:39:10 [id number] [place] 2020-08-01 2020-08-01 Emergency CAMERON Strong [id number] [facility] 12:35:00 14:16:00 Kristen Felipe [id number] [facility] [id number] [facility] [id number] [facility] 084 Branch 2020-08-01 2020-08-01 Emergency X [facility] ERT [id number] Univers 12:19:00 12:19:00 [facility] 2015-01-24 2015-01-27 Inpatient P BIENVENIDO HOOVER [facility] CHENCHO [id number] Univers 15:43:00 19:08:00 [facility] Results Test Description Test Time Test Comments Results Result Comments Source URINE DRUG (IMMUNOASSAY) - COMPREHENSIVE DRUG SCREEN 2020-07 18:47:50 Test Item Value Reference Range Interpretation Comme nts AMPHET (test code = 3028111153) Presumptive Positive Negative A MANASA U (test code = 8941301680) Negative Negative BENZO U (test code = 3948665844) Negative Negative Cocaine Metabolite (test code = Negative Negative 0060444554) METHADONE (test code = 3368136630) Negative Negative OPIATES (test code = 7166040121) Negative Negative PCP (test code = 6960478304) Negative Negative THC (test code = 4894452176) Presumptive Positive Negative A LISSETTE (test code [...] testing). Lab Interpretation (test code = Abnormal 15879-0) [facility] [id number] 17:48:00 Test Item Value Reference Range Interpretation Comments POCT PREG (test code = 1605) negative On board controls acceptable with present C Line (test code = 3574) POCT PREG LOT # (test code = 3572) [id number] POCT PREG TEST DATE (test code = 3576) Lab Interpretation (test code = Normal 03838-2) [facility] SURGICAL PATHOLOGY, LEVEL [id number] 13:00:[address] [address] [address] Laboratory Printed: 03/20/19 [address] [facility] DAEMPathology Page: 1 Patient: BENJAMIN CHRISTINE Birthdate: 1980 Age/Sex: 39/F Spec#: [id number]: MERCY ROSEN MD Specimen Date: 03/16/19 Received Date: 03/19/19 Specimen: PLACENTA, THIRD TRIMESTER CLINICAL DIAGNOSIS 41 week IUP, in labor PATHOLOGIC DIAGNOSIS Placenta, vaginal delivery, clinical trimester third. [...] of the placenta and the other half awayfromthe edge of the placenta. Microscopic findings: - Placental villi -- Infarct. - membranes -- Mild focal acute chorioamnionitis. - Decidua -- Within normal limits. - Maternal vessels -- Withinnormal limits. - Umbilical cord -- Within normal limits. Pathologist:Kilo Morris MD Patient: BENJAMIN CHRISTINE Re03/16/19Loc: 3SW MR#: [id number] CONTINUED ON NEXT PAGE Dis:03/18/19ta: DIS IN [facility] [address] [place] [address] Laboratory Printed: 03/20/[address] [place] [address] DAEMPathology Page: 2 Patient: BENJAMIN CHRISTINE [id number] (Continued) PATHOLOGIC DIAGNOSIS (Continued) Entered by:03/20/19 - 1232 LAB.YGP -- PROCEDURES: [id number] DESCRIPTION A. PLACENTA, THIRD TRIMESTER PLACENTA AND [...] diameter. Cross sectioning of the umbilical cord reveals threevessels and it appears grossly unremarkable. The membrane appears to be inserted attheedge of half of the placenta, whereas the other appears to be be inserted away from theedge of the placenta as there is a diffused white ring formed at the point of insertion.The maximum distance from the edge of the placenta to the point of insertion is 1.5 cm. Thefetal surface of the placenta has the usual vascular pattern. It is mccormick to dark purple incolor. The maternal aspect of the placenta has normal-appearing red-maroon cotyledons. Theplacenta is serially sectioned and reveals a red-maroon, spongy cut surface. No discretelesion or mass is identified. Technology Risk Intern sections are submitted in three cassettes. Section code:A1 - cord and membraneA2 - aspect of the placentaA3 - maternal aspect of the placenta Fused white ring area marked with black ink in cassette A2. Dictated by: SINCERE JAMES Patient: BENJAMIN CHRISTINE Re03/16/19Loc: 3SW MR#: [id number] CONTINUED ON NEXT PAGE Dis: 03/18/19ta: DIS IN [address] [address] Laboratory Printed: 03/20/19 [facility] DAEMPathology Page: 3 Patient: BENJAMIN CHRISTINE MANDEEP [id number] (Continued) GROSS DESCRIPTION (Continued) Entered by: 03/19/19 - 1232 [facility] MICROSCOPIC DESCRIPTION A microscopic examination was performed to arrive at the diagnosticconclusion reported. Signed (Electronically Signed) Kilo Morris MD 03/20/19 --------- --- Patient: BENJAMIN CHRISTINE MANDEEP Re03/16/19Loc: DARION MR#: [id number] END OF REPORT Dis: 03/18/19ta: DIS INChemistry - Urine 2019-03-17 11:36:00 Test Item Value Reference Range Interpretation Comments Chemistry - Urine 49.76 mg/dL 47-110 N NOTE: Conc entration is (test code = based on a timo y urine URCREAT) output of1.5 Li ters. Comment add onChemistry - [id number] 11:36:00 Test Item Value Reference Range Interpretation Comments Chemistry - Urine (test code = URTP) 15 mg/dL 1-14 H Comment add onReference Lab [id number] 08:11:00 Test Item Value Reference Range Interpretation Comments Reference Lab Less than 0.90 Immune >0.99 L Non-immune <0.90 Testing (test code index Equivocal 0.90 - = RUBTTR) 0.99 Immune >0.99Performed at: [facility] [address], [place] [address]Iay Director: Vinod Barnes MD, Phone: [phone] [id number] 06:11:00 Test Item Value Reference Range Interpretation [...] MPV) 8.2 fL 7.4-10.4 N Chemistry - [id number] 16:19:00 Test Item Value Reference Range Interpretation Comments Chemistry - Specials (test Non-Reactive S/CO NonReactive code = THBSAG) [id number] 14:59:00 Test Item Value Reference Range Interpretation [...] Toxicology Not Detected NotDetected (test code = MANASA) Toxicology Not Detected NotDetected (test code = OXYCOD) Toxicology Not Detected NotDetected (test code = PPX) Toxicology The [employer] Pro file-V Panel (test code = for Qualitative Drugs MTCUTOFF) ofAbuse assays are for presumptive scr eening testing only.Th e drug class and detec tion limits are as follows: Drug Class Detection Limit Amphetamine 500 ng/mL*Manasa iturates 200 ng/mLBenzod iazepines 150 ng/mL*Cocai ne 150 ng/mL*Methamphe tamine 500 ng/mL*Methadone 200 ng/mL*Opiates 1 00 ng/mL*Oxycodone 100 ng/mLPCP 25 ng/mLPropoxyphe ne 300 ng/mLTricyclic Antidepressants 300 ng/mLCannabinoi ds (THC) 50 ng/mLTests whic h yield a presumptive pos itive result must bet ested using a more specific alternate chemical method inorder to obtain a confir med analytical resu lt. Additionalconfi rmation and identification may be ordered on a utinebasis, if desired. Pre sumptive positive urines are held fortwo weeks. Comment STATUrine Source: Urine Straight [id number] 14:49:00 Test Item Value Reference Range Interpretation [...] Comment STATUrine Source: Urine Straight CatheterChemistry - [id number] 13:07:00 Test Item Value Reference Range Interpretation [...] is considered immu ne to HBV infection. [id number] 12:23:00 Test Item Value Reference Range Interpretation Comments Immunology (test code = SYPHABT) Nonreactive Nonreactive [id number] 12:21:00 Test Item Value Reference Range Interpretation [...] ALT) Comment please use blood in labType [id number] 12:20:00 Test Item Value Reference Range Interpretation Comments Blood Type Rh (test code = BT) O POSITIVE Antibody Screen (test code = ABSC) NEGATIVE Received Blood Or Been w/in Past 90 Days? [id number] 11:51:00 Test Item Value Reference Range Interpretation [...] = MPV) 8.4 fL 7.4-10.4 N Bacterial [id number] 11:55:00 Test Item Value Reference Range Interpretation [...] BACTC1.1) PLEASE FAX RESULTS TO DR HODGE [phone] PRINT TO [address] 2PKauli FROM 03/14/17 OSMIN ANDRE REQUESTED FAX REPORTS SENT TO [facility] ALSOCPT Modifier: 59Culture, [id number] 11:55:00 Test Item Value Reference Range Interpretation [...] ANAER2.3) PLEASE FAX RESULTS TO DR HODGE [phone] PRINT TO [address] 2PBlue ApronAB FROM 03/14/17 OSMIN ANDRE REQUESTED FAX REPORTS SENT TO [facility] ALSOCPT Modifier: [id number] SURGICAL PATHOLOGY, LEVEL [id number] 16:11:[address] [address] Laboratory Printed: 03/17/17 1613 [facility] DAEMPathology Page: 1 Patient: BENJAMIN CHRISTINE Birthdate: [...] edger of the placenta. Microscopic findings: - Plac ental villi -- No evidence of villitis. - membranes -- Severe chorioamnionitis. - Decidua -- Unremarkable. - Maternal vessels -- Unremarkable. - Umbilical cord -- Severe funisitis. Pathologist:Olga Zuleta MD Entered by:03/17/17 - 1526 LAB.YGP Patient: BENJAMIN CHRISTINE MANDEEP Re03/14/17Loc: DARION MR#: [id number] CONTINUED ON NEXT PAGE Dis: 03/16/17ta: DIS IN [address] [address] Laboratory Printed: 03/17/[address] [place] [address] [facility]EMPathchoctaw [facility] center Page: 2 Patient: BENJAMIN CHRISTINE MANDEEP [id number] (Continued) - PROCEDURES: 57972 GROSS DESCRIPTION A. PLACENTA, THIRD TRIMESTER PLACENTA AND CORD The specimen is received in 10% formalin, and is labeled with the patient's name and"placenta and cord". The specimen consists of a single discoid shaped placenta with atrimmed weight of 344 grams. The placenta measures 17.0 x 15.0 x 2.0cm in greatestdimensions. The cord is inserted eccentrically 3.0 cm from the nearest margin. Theumbilical cord measures 22.0 cm in length with a 1.0 cm diameter. Cut sectioning of theumbilical cord reveals three vessels. The membrane is inserted at the edge of theplacenta. It is thin and semi-tra nslucent with a slight mucoid consistency. The fetalaspects of the placenta have a normal-appearing vascular pattern. It is mccormick to dark purplein color with no gross abnormalities. The maternal aspects have a normal-appearing red-maroon cotyledon. Upon cut sectioning it reveals a red-maroon spongy cut surface with nodiscrete lesions or masses grossly identified. Technology Risk Intern sections are submitted inthree cassettes, A1-3. Section code:A1 - cord and membraneA2 - aspectsA3 - maternal aspects Dictated by: Mara Hearn Entered by: 03/16/17 - 123[facility].Y[facility] MICROSCOPIC DESCRIPTION A microscopicexamination was performed to arrive at the diagnostic conclusion reported. Signed (Electronically Signed) Olga Zuleta MD 03/17/17 Patient: BENJAMIN CHRISTINE Re03/14/17Loc: DARION MR#: [id number] END OF REPORT Dis: 03/16/17ta: DIS INCulture, [id number] 08:57:00 Test Item Value Reference Range Interpretation Comments Culture, Urine (test code = URC) NG48 [id number] 11:19:00 Test Item Value Reference Range Interpretation [...] UACAST) Urine Source: Urine Straight CatheterChemistry - [id number] 02:53:00 Test Item Value Reference Range Interpretation Comments Chemistry - Specials Non-Reactive NonReactive The albarado el screens (test code = HIVT) for HIV-1 p24 Antigen HIV-1/HIV-2Anti body. [id number] 22:22:00 Test Item Value Reference Range Interpretation [...] MPV) 6.8 fL 7.4-10.4 L Reference Lab [id number] 14:09:00 Test Item Value Reference Range Interpretation Comments Reference Lab Testing 0.96 index Immune >0.99 L A [address] nd sample should (test code = RUBTTR) be yuliet ected and tested no less than2-4 weeks. Non-immu ne <0.90 Equivocal 0.90 - 0.99 Immune >0.99Performed at: HD - [facility] [id number] [place], [place] [id number] Di magi: Vinod Barnes MD, Phone: [phone] [id number] 21:32:00 Test Item Value Reference Range Interpretation Comments Chemistry (test 128 mg/dL NOTE: A valu e of > 130 code = [id number]) mg/dL is considered POSITIVE. ADAGu idelines recommend to re screen with a 100g glu cola load iffirst screen is abnormal.Ref: International A ssoc of Diabetes and Pr egnancy StudyGroup Recommendations on the Diagnosis and Classification ofHyperglycemia in . Diab etes Care, Volume 33, Numb er3, April 2009 Culture, Strep Group [id number] 08:27:00 Test Item Value Reference Range Interpretation Comments Culture, Strep Group B (test code = STRPC STBCUL) Culture, Strep Group B (test code = NG STBCUL1) Does Patient Have An Allergy To Penicillin? YESChemistry - [id number] 13:00:00 Test Item Value Reference Range Interpretation Comments Chemistry - Specials (test Non-Reactive S/CO NonReactive code = THBSAG) Comment spec in lab; hepbab ordered in errorChemistry - [id number] 23:48:00 Test Item Value Reference Range Interpretation [...] is considered immu ne to HBV infection. [id number] 21:23:00 Test Item Value Reference Range Interpretation Comments Immunology (test code = SYPHABT) Nonreactive Nonreactive [id number] 21:09:00 Test Item Value Reference Range Interpretation Comments Accuchek (test code = ACU) 95 mg/dL 70-110 N Type [id number] 20:55:00 Test Item Value Reference Range Interpretation Comments Blood Type Rh (test code = BT) O POSITIVE Antibody Screen (test code = ABSC) NEGATIVE Received Blood Or Been w/in Past 90 Days? [id number] 20:54:00 Test Item Value Reference Range Interpretation [...] 0-3 Hyaline UACAST) Urine Source: Urine Clean [id number] 20:43:00 Test Item Value Reference Range Interpretation Comments Urinalysis (test code = No Membranes Rupture No Rupture AMNI-T) [id number] 20:22:00 Test Item Value Reference Range Interpretation [...] code = MPV) 7.0 fL 7.4-10.4 L [id number] 18:08:00 Test Item Value Reference Range Interpretation [...] Toxicology Not Detected NotDetected (test code = MANASA) Toxicology Not Detected NotDetected (test code = OXYCOD) Toxicology Not Detected NotDetected (test code = PPX) Toxicology The [employer] Pro file-V Panel (test code = for Qualitative Drugs MTCUTOFF) ofAbuse assays are for presumptive scr eening testing only.Th e drug class and detec tion limits are as follows: Drug Class Detection Limit Amphetamine 500 ng/mL*Yina turates 200 ng/mLBenzodiaze pines 150 ng/mL*Cocaine 1 50 ng/mL*Methamphe tamine 500 ng/mL*Methadone 200 ng/mL*Opiates 100 ng/mL*Oxycodone 100 ng/mLPCP 25 ng/mLPropoxyphe ne 300 ng/mLTricyclic Antidepressants 300 ng/mLCannabinoi ds (THC) 50 ng/mLTests w hich yield a presumptive p ositive result must bet ested using a more specific alternate chemical method inorder to obtain a confir med analytical resu lt. Additionalconfi rmation and identification may be ordered on a ro utinebasis, if desired. Pre sumptive positive urines are held fortwo weeks. Urine Source: Urine Clean Catch
[2022-12-11 13:25] VITALS: BP 139/106; TEMP 98.2; O2SAT 99
== END 2022-12-11 13:21 | disposition home or self-care (01) ==
LOC: ER 12:33
DX: L02.811 Cutaneous abscess of head [any part, except face] (principal); L03.811 Cellulitis of head [any part, except face]
CPT/HCPCS: 99281

== ENCOUNTER → 2023-03-12 | Emergency (ER) | payer OTHER ==
[~2023-03-12] MED LIST: CIPROFLOXACIN HCL 500 MG TAB ONE; HYDROCODONE/APAP 7.5/325 MG TAB ONE; IBUPROFEN 400 MG TAB ONE
--- OUTSIDE RECORDS SUMMARY | 2023-03-12 20:53 | XMS REPORT | Continuity of Care Document ---
Author Name Unknown Address [address] [facility] [address] [place] [address] [facility] Address [address] [facility] [facility] [address] [place] [address] Care Team Providers Care Green Ware Caster Name Role Phone Kristen Strong DO Attending Clinician [phone] MERCY ROSEN Attending Clinician Unavailable David Hodge Attending Clinician Unavailable JOSE ALBERT Attending Clinician Unav BIENVENIDO Noel Attending Clinician Unavailable MERCY ROSEN Admitting Clinician Unavailable David Hodge Admitting Clinician Unavailable JOSE ALBERT Admitting Clinician UnaBIENVENIDO Benitez Admitting Clinician Unavailable Payers Payer Name Policy Type Policy Number Effective Date Expirati on Date Source [place] [id number] 2015 00:00:00 2015 00:00:00 Problems Condition Name Condition Details Condition Category Status Onset Date Resolution Date Last Treatment Date Treating Clinician Comments Source Active labor Active labor Disease Active 2014-02 00:00: 00 [facility] 37 weeks gestation of 37 weeks gestation of Disease Active 2014-02 00:00: 00 [facility] No care in current No care in current Disease Active 2014-02 00:00: 00 [facility] Anemia Anemia Disease Active 2014-02 00:00: 00 [facility] Liveborn infant, of cantu , born in hospital by vaginal delivery Liveborn , of cantu , born in hospital by vaginal delivery Disease Active 2014-02 00:00: 00 [facility] hemorrhage hemorrhage Disease Active 2014-02 00:00: 00 [facility] Allergies, Adverse Reactions, Alerts Allergy Name Allergy Type Status Severity Reaction(s) Onset Date Inactive Date Treating Clinician Comments Source Tramadol Drug Intolera nce Active Nausea and/or Vomiting 2014-02 00:00: 00 Patient begins nausea and vomiting shortly after taking Ultram. [facility] TRAMADOL DRUG INGREDI Active Med N/V 2014-02 00:00: 00 [facility] Penicill in Propensi ty to adverse reaction s Active Unknown - See comments 2014-02 00:00: 00 [facility] PENICILL IN DRUG INGREDI Active Unknown-Cmnt 2014-02 00:00: 00 [facility] Social History Social Habit Start Date Stop Date Quantity Comments Source Exposure to SARS-CoV-2 (event) Not sure [facility] Alcohol intake 2015-01-25 00:00:00 2015-01-25 00:00:00 Current drinker of alcohol (finding) [facility] Alcohol Comment 2015-01-24 00:00:00 2015-01-24 00:00:00 social [facility] Sex Ass[birth year] At 1980 00:00:00 1980 00[birth year]00:00 [facility] Smoking Status Start Date Stop Date Source Current every day smoker 2015-01-25 00:00:00 [facility] Medications Ordered Medication Name Filled Medication Name Start Date Stop Date Current Medication? Ordering Clinician Indication Dosage Frequency Signature (SIG) Comments Components Source vitamin w/FA (PRENATABS RX) tablet 2014-02 00:00: 00 Yes 1{tbl} Take 1 Tab by mouth daily. [facility] docusate calcium (SURFAK) 240 mg capsule 2014-02 00:00: 00 Yes 240mg Take 1 Cap by mouth once daily as needed for Constipati on. [facility] ferrous sulfate 325 mg (65 mg iron) tablet 2014-02 00:00: 00 Yes 325mg Take 1 Tab by mouth 2 (two) times daily. [facility] ibuprofen (MOTRIN) 600 mg tablet 2014-02 00:00: 00 Yes 600mg Take 1 Tab by mouth every 6 (six) hours as needed for Pain (scale 1-3) or Pain (scale 4-6). Take with food or milk. [facility] Vital Signs Vital Name Observation Time Observation Value Comments Milli carpio Systolic blood pressure 2020-08-01 17:33:34 146 mm[Hg] [facility] Diastolic blood pressure 2020-08-01 17:33:34 94 mm[Hg] [facility] Heart rate 2020-08-01 17:33:34 93 /min [facility] Body temperature 2020-08-01 17:33:34 36.83 Miri [facility] Respiratory rate 2020-08-01 17:33:34 17 /min [facility] Body height 2020-08-01 17:31:00 170.2 cm [facility] Body weight 2020-08-01 17:31:00 82.555 kg [facility] BMI 2020-08-01 17:31:00 28.51 kg/m2 [facility] Oxygen saturation in Arterial blood by Pulse oximetry 2020-08-01 17:31:00 100 /min [facility] Procedures Procedure Date / Time Performed Performing Clinician Source POCT TEST 2020-08-01 17:48:00 Alem Strong ra [facility] URINE DRUG (IMMUNOASSAY) - COMPREHENSIVE DRUG SCREEN 2020-08-01 17:40:00 Kristen Strong [facility] Encounters Start Date/Time End Date/Time Encounter Type Admission Type Attending Clinicians Care Facility Care Department Encounter ID Source 2022-09-17 17:10:32 2022-09-17 17:10:32 Outpatient [facility] [id number] Zenon Ruelas 2022-08-31 14:39:10 2022-08-31 14:39:10 Outpatient [facility] [id number] Zenon Ruelas 2020-08-01 12:35:00 2020-08-01 14:16:00 Emergency Kristen Strong [facility] [id number] [facility] 2020-08-01 12:19:00 2020-08-01 12:19:00 Emergency X [facility] ERT [id number] [facility] 2015-01-24 15:43:00 2015-01-27 19:08:00 Inpatient BIENVENIDO HAN [facility] [id number] [facility] Results Test Description Test Time Test Comments Results Result Co mments Source [facility] [id number] 17:48:00* Test Item Value Reference Range Interpretation Comme nts POCT PREG (test code = 1605) negative On board controls acceptable with C Line (test code = 3574) present POCT PREG LOT # (test code = 3575) [id number] POCT PREG TEST DATE ( test code = 3576) Lab Interpretation (test cod e = 06040-9) Normal [facility] SURGICAL PATHOLOGY, LEVEL [id number] 13:00:00 [place] [address] Laboratory Printed: 03/20/19 [address] [facility] DAEMPathology Page: 1 Patient: MARIA ANTONIA DOTSONBirthdate: 1980 Age/Sex: 39/F Spec#: [id number]: MERCY ROSEN MD Specimen Date: 03/16/19 Received Date: 03/19/19 Specimen: PLACENTA, THIRD TRIMESTER CLINICAL DIAGNOSIS 41 week IUP, inlabor PATHOLOGIC DIAGNOSIS Placenta, vaginal delivery, clinical trimester [...] findings: - Placental villi -- Infarct. - m embranes -- Mild focal acute chorioamnionitis. - Decidua -- Within normal limits. - Maternal vessels -- Within normal limits. - Umbilical cord -- Within normal limits. Pathologist:Kilo Morris MD Patient: MARIA ANTONIA DOTSON Re03/16/19Loc: [place] MR#: [id number] CONTINUED ON NEXT PAGE Dis: 03/18/19ta: DIS IN [address] [address] Laboratory Printed: 03/20/[address] [place] [address] [facility] Page: 2 Patient: MARIA ANTONIA DOTSON MANDEEP [id number] (Continued) PATHOLOGIC DIAGNOSIS (Continued) Entered by:03/20/19 - 1232 LAB.YGP PROCEDURES: 15477 GROSS DESCRIPTION A. PLACENTA, THIRD TRIMESTER PLACENTA [...] whereas the other appears to be be insertedaway from theedge of the placenta as there [...] Theplacenta is serially sectioned and reveals a red- maroon, spongy cut surface. No discretelesion or mass is identified. Representat mere sections are submitted in three cassettes. Section code:A1 - cord and membraneA2 - aspectof the placentaA3 - maternal aspect of the placenta Fused white ring area marked with black ink in cassette A2. Dictated by: SINCERE JAMES Patient: MARIA ANTONIA DOTSON Re03/16/19Loc: [place] MR#: [id number] CONTINUED ON NEXT PAGE Dis: 03/18/19ta: DIS IN [address] [address] Laboratory Printed: 03/20/[address] [place] [address] [facility] Page: 3 Patient: MARIA ANTONIA DOTSON MANDEEP [id number] (Continued)-------- ---- GROSS DESCRIPTION (Continued) Entered by: 03/19/19 - 1232 MELISSA MICROSCOPIC DESCRIPTION A microscopic examination was performed to arrive at the diagnostic conclusion reported. Signed (Electronically Signed) Kilo Morris MD 03/20/19 Patient: MARIA ANTONIA DOTSON Re03/16/19Loc: 3SW MR#: [id number] END OF REPORT Dis: 03/18/19ta: DIS IN Chemistry - [id number] 11:36:00* Test Item Value Reference Range Interpretation Comme [facility] Chemistry - Urine (test code = URCREAT) 49.76 mg/dL 47-110 N NOTE: Concentrat ion is based on a daily urine output of1.5 Liters. Comment add onChemistry - [id number] 11:36:00* Test Item Value Reference Range Interpretation Comme [facility] Chemistry - Urine (test code = URTP) 15 mg/dL 1-14 H Comment add onReference Lab [id number] 08:11:00* Test Item Value Reference Range Interpretation Comme [facility] Reference Lab Testing (test code = RUBTTR) Less than 0.90 index Immune >0.99 L Non-immune <0.90 Equivocal 0.90 - 0.99 Immune >0.99Performed at: [facility] - [facility] [address] [id number] Director: Vinod Barnes MD, Phone: [phone] [id number] 06:11:00* Test Item Value Reference Range Interpretation Comme [facility] Hematology (test code = WBCT) 10.2 thou/uL [...] MPV) 8.2 fL 7.4-10.4 N Chemistry - [id number] 16:19:00* Test Item Value Reference Range Interpretation Comme nts Chemistry - Specials (test code = THBSAG) Non-Reactive S/CO NonReactive [id number] 14:59:00* Test Item Value Reference Range Interpretation Comme nts Toxicology (test code = YULIANA) Detected NotDetected A Toxicology (test code = PCP) Not Detected NotDetected Toxicology (test code = COCN) Not Detected NotDetected Toxicology (test code = METHAMPU) Detected NotDetected A Toxicology (test code = OPIA) Not Detected NotDetected Toxicology (test code = AMPHU) Detected NotDetected A Toxicology (test code = DAVID) Not Detected NotDetected Toxicology (test code = TRICY) Not Detected NotDetected Toxicology (test code = MTD) Not Detected NotDetected Toxicology (test code = STAN) Not Detected NotDetected Toxicology (test code = OXYCOD) Not Detected NotDetected Toxicology (test code = PPX) Not Detected NotDetected Toxicology (test code = MTCUTOFF) The KTM Advance Profile-V Panel for Qualitative Drugs ofAbuse assays are for presumptive screening testing only.The drug class and detection limits are as follows:Drug Class Detection LimitAmphetamine 500 ng/mL*Barbiturates 200 ng/mLBenzodiazepines 150 ng/mL*Cocaine 150 ng/mL*Methamphetamine 500 ng/mL*Methadone 200 ng/mL*Opiates 100 ng/mL*Oxycodone 100 ng/mLPCP 25 ng/mLPropoxyphene 300 ng/mLTricyclic Antidepressants 300 ng/mLCannabinoids (THC) 50 ng/mLTests which yield a presumptive positive result must betested using a more specific alternate chemical method inorder to obtain a confirmed analytical result. Additionalconfirmation and identification may be ordered on a routinebasis, if desired. Presumptive positive urines are held fortwo weeks. Comment STATUrine Source: Urine Straight [id number] 14:49:00* Test Item Value Reference Range Interpretation Comme nts Urinalysis (test code = UACLR) Light-Yellow Yellow Urinalysis (test code = UACLY) Clear Clear Urinalysis (test code = SPGR) 1.015 1.002-1.036 N Urinalysis (test code = MIKALA) 6.5 5.0-9.0 N Urinalysis (test code = UALEU) Negative Dexter/uL Negative Urinalysis (test code = UANIT) Negative Negative Urinalysis (test code = PROUADIP) 10 mg/dL Neg-Trace Urinalysis (test code = GLUCU) Normal mg/dL Negative Urinalysis (test code = KETU) Negative mg/dL Negative Urinalysis (test code = UAUROB) Normal mg/dL Less than 2 Urinalysis (test code = UABIL) Negative Negative Urinalysis (test code = UABLD) Negative Negative Urinalysis (test code = UARBC) 0-3 HPF 0-3 Urinalysis (test code = UAWBC) 0-3 HPF 0-3 Urinalysis (test code = UASQUAM) 0-3 HPF 0-3 Urinalysis (test code = UABAC) None Seen HPF None Seen Comment STATUrine Source: Urine Straight CatheterChemistry - [id number] 13:07:00* Test Item Value Reference Range Interpretation Comme nts Chemistry - Specials (test code = HBSABINT) Reactive NonReactive Chemistry - Specials (test code = HBSABCONC) 645.43 mIU/mL REFERENCE RANGES for HBSAB (Hepatitis B Surface Antibody):Nonreactiv e: 0.0 - <8.0 Individual is considered NOT immune to HBV infectionIndetermina te: >= 8.0 - <12.0 The immune status of the individual should be further assessed by follow-up testing.Reactive: >= 12.0 Individual is considered immune to HBV infection. [id number] 12:23:00* Test Item Value Reference Range Interpretation Comme nts Immunology (test code = SYPHABT) Nonreactive Nonreactive [id number] 12:21:00* Test Item Value Reference Range Interpretation Comme nts Chemistry (test code = NA-T) 135 mmol/L 136-145 L Chemistry (test code = K-T) 4.6 mmol/L 3.5-5.1 N Chemistry (test code = CL) 105 mmol/L 98-107 N Chemistry (test code = CO2) 23 mmol/L 22-29 N Chemistry (test code = ANGP) 12 mmol/L 10-20 N Chemistry (test code = BUN) 9 mg/dL 7.0-18.7 N Chemistry (test code = CREATT) 0.72 mg/dL 0.6-1.1 N Chemistry (test code = EGFRMDRD) 90 Reference Range for Estimated GFR: Greater than 90 mL/min/1.73 m2NOTE:The MDRD equation has not been validated for use with theelderly (over 70 years of age), women, patientswith serious comorbid condition or persons with extremes ofbody size, muscle mass, or nutritional status. Chemistry (test code = GLU-T) 86 mg/dL 70-105 N Chemistry (test code = CA) 8.0 mg/dL 7.8-10.44 N Chemistry (test code = TBILI-T) 0.4 mg/dL 0.2-1.2 N Chemistry (test code = TP) 6.3 g/dL 6.0-8.3 N Chemistry (test code = ALB) 3.3 g/dL 3.5-5.0 L Chemistry (test code = GLOB) 3.0 g/dL 2.4-3.5 N Chemistry (test code = AG) 1.1 g/dL 1.2-2.2 L Chemistry (test code = ALP) 233 U/L 40-110 H Chemistry (test code = AST) 16 U/L 5-34 N Chemistry (test code = ALT) 13 U/L 8-55 N Comment please use blood in labType [id number] 12:20:00* Test Item Value Reference Range Interpretation Comme [facility] Blood Type Rh (test code = BT) O POSITIVE Antibody Screen (test code = ABSC) NEGATIVE Received Blood Or Been w/in Past 90 Days? [id number] 11:51:00* Test Item Value Reference Range Interpretation Comme nts Hematology (test code = WBCT) 14.6 thou/uL [...] = MPV) 8.4 fL 7.4-10.4 N Bacterial [id number] 11:55:00* Test Item Value Reference Range Interpretation Comme nts Bacterial Culture (test code = BACTC) Haemophilus species,Organism identification: Bacterial Culture (test code = BACTC1) Haemophilus parainfluenza/parahaemo lyticus. Bacterial Culture (test code = BACTC1) NF Bacterial Culture (test code = BACTC1) RA NVF O:HASPE (test code = HASPE) Haemophilus species Bacterial Culture (test code = BACTC1.1) QUANTITATION: Bacterial Culture (test code = BACTC1.1) Moderate PLEASE FAX RESULTS TO DR HODGE [phone] PRINT TO [employer] PRINTER 2PSWAB FROM 03/14/17 OSMIN ANDRE REQUESTED FAX REPORTS SENT TO [facility] ALSOCPT Modifier: 59Culture, [id number] 11:55:00* Test Item Value Reference Range Interpretation Comme nts Culture, Anaerobe (test code = ANAER) Anaerobic Gram Negative Alonso#2: IN BROTH SUBCULTURE ONLY Culture, Anaerobe (test code = ANAER2) clinically indicated. O:FUSP (test code = FUSP) Fusobacterium species Culture, Anaerobe (test code = ANAER2.1) QUANTITATION: Culture, Anaerobe (test code = ANAER2.1) Few O:PEMIC (test code = PEMIC) Peptostreptococcus micros Culture, Anaerobe (test code = ANAER2.2) QUANTITATION: Culture, Anaerobe (test code = ANAER2.2) Few O:ANGNR (test code = ANGNR) Anaerobic Gram Negative Alonso Culture, Anaerobe (test code = ANAER2.3) QUANTITATION: Culture, Anaerobe (test code = ANAER2.3) Nutrient Broth Only PLEASE FAX RESULTS TO DR HODGE [phone] PRINT TO [employer] 2PSWAB FROM 03/14/17 OSMIN ANDRE REQUESTED FAX REPORTS SENT TO [facility] Modifier: [id number] SURGICAL PATHOLOGY, LEVEL [id number] 16:11:00 [place] [address] Laboratory Printed: 03/17/17 161[facility] DAEMPathology Page: 1 Patient: MARIA ANTONIA DOTSON Birthdate: 1980 Age/Sex: 37/F Spec#: [id number]: David Hodge MD Specimen Date: 03/14/17 Received Date: 03/16/17 Specimen: PLACENTA, THIRD TRIMESTER CLINICAL DIAGNOSIS chorioamnionitis PATHOLOGIC DIAGNOSIS Placenta, spontaneous vaginal delivery, clinical trimester third: Gross/microscopically determined trimester: Third. Gross features of placental disc: - Weight -- 344 grams. - Thickness -- 2.0 cm. - Shape/morphology -- Discoid. Gross features of umbilical cord: - Insertion -- Eccentrically 3.0 cm from the nearest margin. - Number of vessels -- Three. - Length -- 22.0 cm. -Diameter -- 1.0 cm. Insertion of membrane: At the edger of the placenta. Microscopic findings: - Placental villi -- No evidence of villitis. - membranes -- Severe chorioamnionitis. - Decidua -- Unremarkable. - Maternal vessels -- Unremarkable. - Umbilical cord -- Severe funisitis. Pathologist:Olga Zuleta MD Entered by:03/17/17 152 LAB.YGP Patient: MARIA ANTONIA DOTSON Re03/14/17Loc: [place] MR#: [id number] CONTINUED ON NEXT PAGE Dis: 03/16/17ta: DIS IN [address] [address] Laboratory Printed:03/17/[address] [place] [address] DAEMPathology Page: 2 Patient: MARIA ANTONIA DOTSON [id number] (Eloina rodgers) PROCEDURES: 96064 GROSS DESCRIPTION A. PLACENTA, THIRD TRIMESTER PLACENTA AND CORD The specimen is received in 10% formalin, and is labeled with the patient's name and"placenta and cord". The specimenconsists of a single discoid shaped placenta with atrimmed weight of 344 grams. The placenta measures 17.0 x 15.0 x 2.0 cm in greatestdimensions. The cord is inserted eccentrically 3.0 cm from the nearest margin. Theumbilical cord measures 22.0 cm in length with a 1.0 cm diameter. Cut sectioning oftheumbilical cord reveals three vessels. The membrane is inserted at the edge of theplacenta.It is thin and semi-translucent with a slight mucoid consistency. The fetalaspects of the placenta have a normal-appearing vascular pattern. It is mccormick to dark purplein color with no gross abnormalities. The maternal aspects have a normal- appearing red-maroon cotyledon. Upon cut sectioning it reveals a red-maroon spongy cut surface with nodiscrete lesions or masses grossly identified. Scientist Propagator sections are submitted intee cassettes, A1-3. Section code:A1 - cord and membraneA2 - aspectsA3 - maternal aspects Dictated by: Mara Hearn Entered by: 03/16/17 - 1230 [facility].YGP MICROSCOPIC DESCRIPTION A microscopic examination was performed to arrive at the diagnostic conclusion reported. Signed (Electronically Signed) Olga Zuleta MD 03/17/17 Patient: MARIA ANTONIA DOTSON RYANRe03/14/17Loc: 3SW MR#: [id number] END OF REPORT Dis: 03/16/17ta: DIS INCulture, [id number] 08:57:00* Test Item Value Reference Range Interpretation Comme nts Culture, Urine (test code = URC) NG48 [id number] 11:19:00* Test Item Value Reference Range Interpretation Comme nts Urinalysis (test code = UACLR) Red Yellow A Urinalysis (test code = UACLY) Cloudy Clear Urinalysis (test code = SPGR) 1.020 1.005-1.030 N Urinalysis (test code = MIKALA) 7.0 5.0-9.0 N Urinalysis (test code = UALEU) Moderate Negative A Urinalysis (test code = UANIT) Negative Negative Urinalysis (test code = PROUADIP) 30 mg/dL Neg-Trace A Urinalysis (test code = GLUCU) Negative mg/dL Negative Urinalysis (test code = KETU) Negative mg/dL Negative Urinalysis (test code = UAUROB) 1.0 mg/dL 0.2-1.0 Urinalysis (test code = UABIL) Negative Negative Urinalysis (test code = UABLD) Large Negative A Urinalysis (test code = UARBC) GREATER THAN 50-TNTC HPF 0-3 A Urinalysis (test code = UAWBC) 21-50 HPF 0-3 A Urinalysis (test code = UASQUAM) 4-6 HPF 0-3 A Urinalysis (test code = UABAC) None Seen HPF None Seen Urinalysis (test code = UACAST) NONE SEEN LPF 0-3 Hyaline Urine Source: Urine Straight CatheterChemistry - [id number] 02:53:00* Test Item Value Reference Range Interpretation Comme nts Chemistry - Specials (test code = HIVT) Non-Reactive NonReactive The panel scr eens for HIV-1 p24 Antigen HIV-1/HIV-2Antibody. [id number] 22:22:00* Test Item Value Reference Range Interpretation Comme nts Hematology (test code = WBCT) 16.1 thou/uL [...] MPV) 6.8 fL 7.4-10.4 L Reference Lab [id number] 14:09:00* Test Item Value Reference Range Interpretation Comme nts Reference Lab Testing (test code = RUBTTR) 0.96 index Immune >0.99 L A second sa mple should be collected and tested no less than2-4 weeks. Non-immune <0.90 Equivocal 0.90 - 0.99 Immune >0.99Performed at: [facility] - [facility] [address] [id number] Director: Vinod Barnes MD, Phone: [phone] [id number] 21:32:00* Test Item Value Reference Range Interpretation Comme nts Chemistry (test code = MR6XNEBLRA) 128 mg/dL NOTE: A value of > 130 mg/dL is considered POSITIVE. ADAGuidelines recommend to rescreen with a 100g glucola load iffirst screen is abnormal.Ref: International Assoc of Diabetes and StudyGroup Recommendations on the Diagnosis and Classification ofHyperglycemia in . Diabetes Care, Volume 33, Number3, April 2009 Culture, Strep Group [id number] 08:27:00* Test Item Value Reference Range Interpretation Comme nts Culture, Strep Group B (test code = STBCUL) STRPC Culture, Strep Group B (test code = STBCUL1) NG Does Patient Have An Allergy To Penicillin? YESChemistry - [id number] 13:00:00* Test Item Value Reference Range Interpretation Comme [facility] Chemistry - Specials (test code = THBSAG) Non-Reactive S/CO NonReactive Comment spec in lab; hepbab ordered in errorChemistry - [id number] 23:48:00* Test Item Value Reference Range Interpretation Comme [facility] Chemistry - Specials (test code = HBSABINT) Non-Reactive NonReactive Chemistry - Specials (test code = HBSABCONC) 2.58 mIU/mL REFERENCE RANGES for HBSAB (Hepatitis B Surface Antibody):Nonreactive : 0.0 - <8.0 Individual is considered NOT immune to HBV infectionIndeterminat e: >= 8.0 - <12.0 The immune status of the individual should be further assessed by follow-up testing.Reactive: >= 12.0 Individual is considered immune to HBV infection. [id number] 21:23:00* Test Item Value Reference Range Interpretation Comme [facility] Immunology (test code = SYPHABT) Nonreactive Nonreactive [id number] 21:09:00* Test Item Value Reference Range Interpretation Comme [facility] Accuchek (test code = ACU) 95 mg/dL 70-110 N Type [id number] 20:55:00* Test Item Value Reference Range Interpretation Comme [facility] Blood Type Rh (test code = BT) O POSITIVE Antibody Screen (test code = ABSC) NEGATIVE Received Blood Or Been w/in Past 90 Days? [id number] 20:54:00* Test Item Value Reference Range Interpretation Comme nts Urinalysis (test code = UACLR) Yellow Yellow Urinalysis (test code = UACLY) Clear Clear Urinalysis (test code = SPGR) 1.020 1.005-1.030 N Urinalysis (test code = MIKALA) 7.0 5.0-9.0 N Urinalysis (test code = UALEU) Negative Negative Urinalysis (test code = UANIT) Negative Negative Urinalysis (test code = PROUADIP) Negative mg/dL Neg-Trace Urinalysis (test code = GLUCU) Negative mg/dL Negative Urinalysis (test code = KETU) Negative mg/dL Negative Urinalysis (test code = UAUROB) 0.2 mg/dL 0.2-1.0 Urinalysis (test code = UABIL) Negative Negative Urinalysis (test code = UABLD) Negative Negative Urinalysis (test code = UARBC) 0-3 HPF 0-3 Urinalysis (test code = UAWBC) 0-3 HPF 0-3 Urinalysis (test code = UASQUAM) 0-3 HPF 0-3 Urinalysis (test code = UABAC) None Seen HPF None Seen Urinalysis (test code = UACAST) 0-3 HYALINE CAST LPF 0-3 Hyaline Urine Source: Urine Clean [id number] 20:43:00* Test Item Value Reference Range Interpretation Comme nts Urinalysis (test code = AMNI-T) No Membranes Rupture No Rupture [id number] 20:22:00* Test Item Value Reference Range Interpretation Comme nts Hematology (test code = WBCT) 9.9 thou/uL [...] code = MPV) 7.0 fL 7.4-10.4 L Rhmvsrzqkt3661-00-26 18:08:00* Test Item Value Reference Range Interpretation Comme nts Toxicology (test code = YULIANA) Not Detected NotDetected Toxicology (test code = PCP) Not Detected NotDetected Toxicology (test code = COCN) Not Detected NotDetected Toxicology (test code = METHAMPU) Not Detected NotDetected Toxicology (test code = OPIA) Not Detected NotDetected Toxicology (test code = AMPHU) Not Detected NotDetected Toxicology (test code = DAVID) Not Detected NotDetected Toxicology (test code = TRICY) Not Detected NotDetected Toxicology (test code = MTD) Not Detected NotDetected Toxicology (test code = STAN) Not Detected NotDetected Toxicology (test code = OXYCOD) Not Detected NotDetected Toxicology (test code = PPX) Not Detected NotDetected Toxicology (test code = MTCUTOFF) The K[facility] Advance Profile-V Panel for Qualitative Drugs ofAbuse assays are for presumptive screening testing only.The drug class and detection limits are as follows:Drug Class Detection LimitAmphetamine 500 ng/mL*Barbiturates 200 ng/mLBenzodiazepines 150 ng/mL*Cocaine 150 ng/mL*Methamphetamine 500 ng/mL*Methadone 200 ng/mL*Opiates 100 ng/mL*Oxycodone 100 ng/mLPCP 25 ng/mLPropoxyphene 300 ng/mLTricyclic Antidepressants 300 ng/mLCannabinoids (THC) 50 ng/mLTests which yield a presumptive positive result must betested using a more specific alternate chemical method inorder to obtain a confirmed analytical result. Additionalconfirmation and identification may be ordered on a routinebasis, if desired. Presumptive positive urines are held fortwo weeks. Urine Source: Urine Clean Catch Notes Date/Time Note Provider Source 2019-03-18 03:14:00 [id number] 0bLy4hkKftO3WrSgUGn u0IxcQXzskfdQ77aaCIVrCsvUonD9VmFEr6UN80 05-04-01T03:14:00[facility] Name: MARIA ANTONIA DOTSON [address] : 1980, Age: 39, Sex: SHYAM Dickerson [address] Unit #: [id number], Status: ADM IN [phone] Location: [address] [place] [address]-P Report Dict : Camelia Winters Admission Date: 03/16/19 Report #: [id number] Discharge Date: CC: Progress Note Post Progress Note Post Day #: 2 Subjective: Patient doing well. States her headaches have resolved. States CPS came and talked to her and her regarding placement of child. She is under the impression that will go home with FOB today. Lochia very minimal. PO intake tolerated: yes Flatus: yes Ambulation: yes Vital Signs (12 hours) Temp Pulse Resp BP Pulse Ox 03/17/19 17:22 98 24 H 139/82 98 03/17/19 16:30 98.7 F 99 20 153/82 H Weight Weight 86.183 kg - Physical Examination General: NAD Cardiovascular: RRR Respiratory: non-labored breathing Abdominal: + bowel sounds, lochia (minimal), no distention, appropriately TTP Fundus firm at: below umbilicus Skin: no rash Neurological: no gross focal deficits Psychiatric: A Ox3, normal affect Result Diagrams: 03/17/19 05:31 03/16/19 11:35 Additional Labs: Post Labs Blood Type O POSITIVE 03/16/19 11:35 Hep Bs Antigen Non-Reactive S/CO (NonReactive) 03/16/19 11:35 Rubella IgG Antibody Less than 0.90 index (Immune >0.99) L 03/16/19 11:35 (1) Advanced maternal age (AMA) in Code(s): ENF0877 - Status: Acute (2) Amphetamine abuse Code(s): F15.10 - OTHER STIMULANT ABUSE, UNCOMPLICATED Status: Acute (3) Elevated blood pressure affecting in third trimester, antepartum Code(s): O16.3 - UNSPECIFIED MATERNAL HYPERTENSION, THIRD TRIMESTER Status: Acute (4) Hx maternal GBS (group B streptococcus) affected , Code(s): O09.299 - SUPRVSN OF PREG W POOR REPRODCTV OR OBSTET HISTORY, UNSP TRI Status: Acute (5) Methamphetamine abuse Code(s): F15.10 - OTHER STIMULANT ABUSE, UNCOMPLICATED Status: Acute (6) No care in current Code(s): O09.30 - SUPRVSN OF PREG W INSUFFICIENT ANTENAT CARE, UNSP TRIMESTER Status: Acute (7) Term delivered Code(s): O80 - ENCOUNTER FOR FULL-TERM UNCOMPLICATED DELIVERY Status: Acute (8) Continuous tobacco abuse Code(s): Z72.0 - TOBACCO USE Status: Acute - Assessment/Plan 39 yo s/p @ 39wks to a ANN stark at 1240 on 03/16/19, with elevated bp during delivery and , meth/amphet abuse, no prenantal care, hx of GBS meningitis in a different child, advanced maternal age, and tobacco abuse. sIUP, term, delivered -continue routine care -meeting PP milestones -Rh positive, Rubella non-immune (will need MMR vaccine prior to discharge - ordered) pre-E without severe features -BP high to 156/78, continue to monitor -Several BP's in upper 140's/low 150's yesterday; will start on amlodipine 5 mg as it is conveniently once a day dosing and cheaper than nifedipine -Urine protein/cr 0.3, CBC WNL, CMP WNL AMA Multi-drug use in -likely contributing to elevated BP -Amphetamine/methamphetamine and THC positive -CPS consulted and following Tobacco abuse -Encourage cessation No care -Rubella non-immune -CPS following Hx of GBS pos with prior with GBS meningitis -Observe for at least 48 hours -Did not receive treatment during delivery due to precipitous nature of delivery Rubella non-immune -Will need MMR vaccine prior to discharge; ordered Dispo: Stable. D/c home today. <Electronically signed by Camelia Winters DO> 03/18/19 0631 <Electronically signed by Jose Albert MD> 03/18/19 0839 PRProgress noteCorwin SantiagoHdvmsmbYjmemjbgkNyfmrdv3681-85-31D21:14 :00Postpartum Progress [id number] for patient abdelrahmanCamelia SantiagoQittdfmPQXYBYTSMUAF9534-66-55W98:41:01 Camelai Winters STLSJ[facility] 2019-03-17 07:28:00 [id number] wBHfS0sVEV9q2T5Ubbe PPhG13Ls3ZpSD4+QHsC4R6jEszkZJd9ZlJnQR65 05-04-00T07:28:00[facility] Name: MARIA ANTONIA DOTSON [address] : 1980, Age: 39, Sex: SHYAM Dickerson [address] Unit #: [id number], Status: DIS IN [phone] Location: 3SW 335-P Report Dict DrJose: Paola Walterr Admission Date: 03/16/19 Report #: [id number] Discharge Date: 03/18/19 CC: Progress Note Post Progress Note Post Day #: 1 Subjective: Doing well. Elevated bps during labor yesterday and overnight. Denies headaches, vision changes, swelling. PO intake tolerated: yes Flatus: yes Ambulation: yes Weight Weight 86.183 kg - Physical Examination General: NAD Cardiovascular: no m/r/g, RRR Respiratory: clear to auscultation bilaterally, non-labored breathing Neurological: no gross focal deficits Psychiatric: A Ox3 Result Diagrams: 03/17/19 05:31 03/16/19 11:35 Additional Labs: Post Labs Blood Type O POSITIVE 03/16/19 11:35 Hep Bs Antigen Non-Reactive S/CO (NonReactive) 03/16/19 11:35 (1) Term delivered Code(s): O80 - ENCOUNTER FOR FULL-TERM UNCOMPLICATED DELIVERY Status: Acute (2) Methamphetamine abuse Code(s): F15.10 - OTHER STIMULANT ABUSE, UNCOMPLICATED Status: Acute (3) Amphetamine abuse Code(s): F15.10 - OTHER STIMULANT ABUSE, UNCOMPLICATED Status: Acute (4) Hx maternal GBS (group B streptococcus) affected , Code(s): O09.299 - SUPRVSN OF PREG W POOR REPRODCTV OR OBSTET HISTORY, UNSP TRI Status: Acute (5) Advanced maternal age (AMA) in Code(s): FAJ9759 - Status: Acute (6) Elevated blood pressure affecting in third trimester, antepartum Code(s): O16.3 - UNSPECIFIED MATERNAL HYPERTENSION, THIRD TRIMESTER Status: Acute (7) No care in current Code(s): O09.30 - SUPRVSN OF PREG W INSUFFICIENT ANTENAT CARE, UNSP TRIMESTER Status: Acute (8) Continuous tobacco abuse Code(s): Z72.0 - TOBACCO USE Status: Acute - Assessment/Plan 39 yo s/p @ 39wks to a ANN f at 1240 on 03/16/19, with elevated bp during delivery and , meth/amphet abuse, no prenantal care, hx of GBS meningitis in a different child, advanced maternal age, and tobacco abuse. #sIUP, term, delivered -continue routine care #Elevated BP without diagnosis of HTN -multiple during labor and overnight after delivery -added on a urine protein/cr ratio from sample taken yesterday which showed ratio of .3 -no severe features on initial labs yesterday -however if severe range blood pressures present during , I would consider magnesium for seizure prophylaxis. #AMA #multi-drug use in -likely contributing to elevated BP #tobacco abuse #no care #hx of GBS pos with prior with GBS meningitis Vaishali Vicente MD, PGY-3 Addendum - Attending - Attending Attestation Date/Time: 03/21/19 0906 I personally evaluated the patient and discussed the management with Dr. Walter I agree with the History, Examination, Assessment and Plan documented above. <Electronically signed by Paola Walter MD> 03/17/19 1554 <Electronically signed by Prashant Rosen MD> 03/21/19 0907 PRProgress noteKiran DejesusUuwozExtcyzYzmji1274-98-06E43:28:00Post Progress [id number] for patient careFantasma DejesusGuvniHKEFMBVAELID5900-26-40A15:08:40 Paola Walter STLSJ[facility] 2019-03-17 01:03:00 [id number] fvQdIbmdEt7ayfa+Z5S MbdW+xFTNp951HBjFAXxqQwYBn62KnYa3dJF+05-04-00T01:03:00[facility] Name: EMMETTMARIA ANTONIA KAUFMAN [address] : 1980, Age: 39, Sex: SHYAM Dickerson [address] Unit #: [id number], Status: ADM IN [phone] Location: 3S 335-P Report Dict DrJose: MERCY ROSEN MD Admission Date: 03/16/19 Report #: [id number] Discharge Date: CC: Progress Note Post Progress Note Post Day #: PPD1 Subjective: Resting, no complaints. PO intake tolerated: yes Flatus: yes Ambulation: yes Vital Signs (12 hours) Temp Pulse Resp BP Pulse Ox 03/16/19 19:24 99.0 F 93 16 142/84 H 98 03/16/19 17:11 98.0 F 87 12 151/83 H 98 03/16/19 16:23 96 03/16/19 16:20 98.5 F 87 22 H 142/87 H 03/16/19 15:10 98.5 F 90 18 157/86 H Weight Weight 86.183 kg - Physical Examination General: NAD Respiratory: non-labored breathing Neurological: no gross focal deficits Psychiatric: normal affect Result Diagrams: 03/16/19 11:35 03/16/19 11:35 Additional Labs: Post Labs Blood Type O POSITIVE 03/16/19 11:35 Hep Bs Antigen Non-Reactive S/CO (NonReactive) 03/16/19 11:35 - Assessment/Plan Doing well s/p Case management consult pending for +UDS Routine PP care <Electronically signed by Prashant Rosen MD> 03/17/19 0104 PRProgress noteJimbo BaileyKvheeoiCfuiwhPuaytsv8016-68-74H41:03:00 Progress [id number] for patient careMERCY BAILEYHNXYAKOBKOBFDDQ5058-59-78M49:05:46 MERCY ROSEN [facility] 2019-03-16 13:12:00 [id number] 5I6SCEfMHZuavQC5pTv Camejo/DDkwKjJR/PUV+N0M67rwBin+V5cCwbUHCg58 05-03-30T13:12:00[facility] Name: MARIA ANTONIA DOTSON [email or web address] : 1980, Age: 39, Sex: SHYAM Dickerson [address] Unit #: [id number], Status: DIS IN [phone] Location: [address] [place] [address] Paola Walter *r Admission Date: 03/16/19 Report #: [id number] Discharge Date: 03/18/19 CC: OB Operative Delivery Note OB Operative/Delivery Note Delivery Dr/Surgeon: Jose Angel Vicente Assist: Attending: Dr. Rosen Pre-Delivery Diagnosis: active labor Procedure/Post Delivery Dx: spontaneous vaginal delivery Weeks gestation: 39 Anesthesia: none - Findings A Sex: female - 1 min: 9 - 5 min: 9 - Additional Findings/Plan Placenta delivered: spontaneous Repaired Obstetrical Laceration: none Compilations/Other Findings: Delivering Physician : Jose Angel Vicente Attending: Alexa Procedure: Spontaneous Vaginal Delivery Anesthesia: none Pre-op Diagnosis: 1. Term intrauterine in labor 2. Hx of GBS + 3. No care 4. Hx of drug use 5. AMA Post-op Diagnosis: 1. Term intrauterine , delivered 2. 2. Hx of GBS + 3. No care 4. Hx of drug use 5. AMA Indications: A 39 y/o female presents in active labor. Delivery Note: This is 39yo F @39ks who delivered a viable F at 1240 on 03/16/2019. Following an uneventful antepartum course, a vigorous female was delivered over an intact perineum in the occipitoanterior position. Anterior shoulder and then remainder of the body delivered. No nuchal cord. The head was held down and mouth and nares were bulb suctioned. Cord clamped and cut and cord blood collected. Placenta delivered intact (in the Diaz presentation) with a 3 vessel cord noted. Fundal massage was performed and the fundus was firm. The cervix and vagina were inspected and found to be free of lacerations. went to nursery in good condition for routine care. Apgars were 9/9 at 1 5 minutes, respectively. Patient tolerated delivery well and went to after routine recovery/care. Addendum - Attending - Attending Attestation Date/Time: 03/21/19 0908 I personally evaluated the patient and discussed the management with Dr. Walter. Uncomplicated as detailed above. I agree with the History, Examination, Assessment and Plan documented above. <Electronically signed by Paola Walter MD> 03/17/19 1541 <Electronically signed by Prashant Rosen MD> 03/21/19 0908 OPOperative reportKiran DejesusZjfaaZkftfpEgtoe8742-37-14P57:12:00OB Operative & Delivery [id number] for patient careFantasma DejesusHjxrtMESHGUIASCND8053-41-02O24:09:10 Paola Walter [facility] 2017-03-16 13:08:00 [id number] qSSrwBniNkGlNOIaZy8 tIE1NlvMuweu0GXYlCMju4gO71QFYd7BORLRu31 03-03-30T13:08:00[facility] Name: MARIA ANTONIA DOTSON [email or web address] : 1980, Age: 37, Sex: SHYAM Dickerson [address] Unit #: [id number], Status: DIS IN [phone] Location: [address] [place] [address] JOSE ALBERT MD Admission Date: 03/14/17 Report #: [id number] Discharge Date: 03/16/17 CC: David Hodge MD, GEORGE MICHAEL MD NO PCP PROVIDER DISCHARGE SUMMARY REPORT DATE OF ENCOUNTER: 03/16/2017 ADMITTING DIAGNOSIS: labor at 33-34 weeks. DISCHARGE DIAGNOSIS: Chorioamnionitis. CONSULTATIONS: Neonatology. PROCEDURE: spontaneous vaginal delivery. HOSPITAL COURSE: Ms. Maria Antonia Dotson is a 37-year-old multiparous female who presented in labor at approximately 34 weeks and subsequently delivered spontaneously a female infant with a diagnosis of chorioamnionitis based on the foul smelling nature of amniotic fluid. Mother had just been admitted a few days prior for labor and had been given steroids and antibiotic treatment over a couple days and after patient showed arrest for more than 24 hours, the patient had been discharged home. Once she delivered she was transferred to for routine care and was started on Levaquin for concerns of risk of endometritis as well as a urinary tract infection. The patient is now day #2. She has remained afebrile throughout her stay. Today she is tolerating p.o. well, ambulating, reporting scanty lochia and having excellent pain control. The patient has expressed a deep appreciation for the care for her and her baby at this hospital. The patient had arrangements made for her to stay at [facility] for some period of time while the baby is in the NICU. The patient is being discharged to the [facility] on ibuprofen p.r.n. for pain. She is interested in discussing with a provider sterilization. I have counseled her that she will need to follow up in the period with someone that can assist her as soon as possible. Patient has expressed understanding. She has been given instructions to seek medical attention should she experience increasing pain, fever or bleeding. The patient will be given 1 more dose of Levaquin just prior to discharge. Reported By: JOSE ALBERT MD Electronically Signed Date/Time: 03/16/17 1529 Dictated Date/Time: 03/16/17 1157 Transcribed Date/Time: 03/16/17 1307 Cardiothoracic Anesthesia Technician: REGGIE Wall summaryJay CevallosOpvqgGpjisvEfpfx2745-67-16K48:08:00HARLEY BERONICA SUMMARY IGOEZZ4744554SOOXZRirvovvcm for patient careHOCALVINMICHELLENAFISA NQARECTQSRKMXBJRGR8390-84-93O27:31:01 JOSE ALBERT [facility] 2017-03-15 07:41:00 [id number] QDYHKwAUHymHmyRnL1B jHlJGTDULhSJ1P6r9PMvpCvh5kQBU9JBUHy5C08 03-03-29T07:41:00[facility] Name: MARIA ANTONIA DOTSON [address] : 1980, Age: 37, Sex: Sandip SHYAM Pulido [address] Unit #: [id number], Status: ADM IN [phone] [id number] Location: 3SW 332-P Report Dict DrJose: David Hodge MD Admission Date: 03/14/17 Report #: [id number] Discharge Date: CC: Progress Note Post Progress Note Post Day #: 1 PO intake tolerated: yes Flatus: yes Ambulation: yes Vital Signs (12 hours) Temp Pulse Resp BP 03/15/17 04:00 97.7 F 65 16 115/60 03/15/17 01:40 76 20 130/86 03/15/17 00:40 98.6 F 69 16 119/64 03/14/17 23:09 98.4 F 81 18 141/69 H 03/14/17 21:46 98.3 F 96 22 H 132/76 03/14/17 21:31 98.0 F 96 18 132/76 Weight Weight 195 lb - Physical Examination General: NAD Cardiovascular: no m/r/g, RRR Respiratory: clear to auscultation bilaterally Abdominal: + bowel sounds, lochia Extremities: negative homans (B) Neurological: no gross focal deficits Psychiatric: A Ox3, normal affect Result Diagrams: 03/14/17 22:12 (1) Chorioamnionitis in third trimester Code(s): O41.1230 - CHORIOAMNIONITIS, THIRD TRIMESTER, NOT APPLICABLE OR UNSP Status: Resolved Qualifiers: Fetus number: single or unspecified fetus Qualified Code(s): O41.1230 - Chorioamnionitis, third trimester, not applicable or unspecified - Assessment/Plan doing well. placenta cx pending. baby in nicu. anticipate dc at 48-72 hr post if no sign of endometritis <Electronically signed by David Hodge MD> 03/15/17 0741 PRProgress noteDAWJustice LuceroShnaraBbpvzuRwazhgT1632-79-98I41:41:00P ostpartum Progress [id number] for patient careSu HadleyGizlmxIXTOUZLZUNMS9371-44-96U97:42:55 David Hodge [facility] 2017-03-15 06:09:00 [id number] 4TJsAHAlH546ppJ76Pu 3eFDO/QMLqs5dsKWxEo16p3bZop5kCY4XQUgV43 03-03-29T06:09:00[facility] Name: MARIA ANTONIA DOTSON [address] : 1980, Age: 37, Sex: F SHYAM Pulido [address] Unit #: [id number], Status: ADM IN [phone] Location: [address] [place] [address].: David Hodge MD Admission Date: 03/14/17 Report #: [id number] Discharge Date: CC: David Hodge MD NO PCP PROVIDER OPERATIVE NOTE DATE OF SERVICE: 03/14/2017 TIME OF DICTATION: 2230 hours. I was called to the room to present for spontaneous vaginal delivery as the patient felt the need to push at approximately 2208 hours, I presented and the patient's perineum was prepped and draped in the usual manner, approximately 2214 hours with bulging membrane. Immediately upon amniotomy, copious yellow foul smelling amniotic fluid was noted. With one push, the patient got the fetus to the perineum and delivered over an intact perineum at 2216 hours. The cord was immediately clamped and cut and the was handed off to Dr. Barrett and the Neonatology team for care and resuscitation. Please see the resuscitation record. Weight and Apgars are pending. Cord blood sample was obtained. The placenta was delivered and cultured both maternal and side with the same swab. It was sent for pathologic analysis. The uterus was firm. No lacerations were noted. Estimated blood loss was 250 and counts were correct. The patient was to be entered into routine care. Reported By: David Hodge MD Electronically Signed Date/Time: 03/15/17 0720 Dictated Date/Time: 03/14/172228 Transcribed Date/Time: 03/15/17 0131 Cardiothoracic Anesthesia Technician: MARIA INES OPOperative reportIMEDX.Kelly NeffSqqjozDmgzSszzay4965-10-61Y32:09:00OPER ATIVE [id number] for patient abdelrahmanDAWDSu GutierrezYuircgWZJTPIRZDZEH8779-29-94M68:21:12 David Hodge STLSJ[facility] 2017-03-14 23:41:00 [id number] /M18PTPwGjEKHnQLMIy 90i++VQ4snDO0HaafZTjHNWXQhFXmE60soiew70 03-03-28T23:41:00[facility] Name: MARIA ANTONIA DOTSON [address] : 1980, Age: 37, Sex: SHYAM Dickerson [address] Unit #: [id number], Status: ADM IN [phone] Location: [address] [place] [address].: David Hodge MD Admission Date: 03/14/17 Report #: [id number] Discharge Date: CC: David Hodge MD NO PCP PROVIDER HISTORY AND PHYSICAL REPORT DATE OF ADMISSION: 03/14/2017 TIME OF ADMISSION: 2114 PRESENTING COMPLAINT: Contractions, active labor approximately 33-34 weeks' gestation. HISTORY OF PRESENT ILLNESS: Ms. Dotson is a 37-year-old 8, para 4, AB 3 at approximately 33-34 weeks gestation by poor criteria, who was admitted last week with contractions and cervical change. She received antepartum betamethasone and was discharged home yesterday after no cervical change. She reports onset of contractions this evening. Denies rupture of membranes, reports an active fetus. OB AND MEDICAL INTERN HISTORY: SABs and SVDs, hepatitis B negative, RPR negative, rubella nonimmune, group B strep negative on culture on the , O positive, HIV not done. No 50 gram, no genetic testing. PAST MEDICAL HISTORY: Patient has a nebulous past medical history of a possible stomach cancer that was treated with oral therapy. It sounds like this is most likely H. pylori infection. PAST SURGICAL HISTORY: Tonsillectomy, cholecystectomy, and appendectomy. SOCIAL HISTORY: One pack per day. Denies alcohol or drug abuse. UDS negative on previous admission. ALLERGIES: PENICILLIN and TRAMADOL. The patient reports she has hives with PENICILLIN. MEDICATIONS: None. FAMILY HISTORY/REVIEW OF SYSTEMS: Noncontributory. PHYSICAL EXAMINATION: GENERAL: White female in moderate distress. VITAL SIGNS: Blood pressure 135/85, heart rate 97, temperature 96, pulse 85. HEENT: Within normal limits. LUNGS: Clear to auscultation bilaterally. HEART: Regular rhythm. ABDOMEN: Soft, nontender with palpable contractions. Fundal height is 33 cm. FHTs are 130s to 140s. PELVIC: Vulva without lesions. Vagina, slight discharge. Cervix, the patient has a bulging bag, cephalic presentation, 8 complete, -1 station. EXTREMITIES: Without clubbing, cyanosis, or edema. heart rate tracing reveals a baseline of 130s to 140s with early and variable decelerations, no evidence of late decelerations, category 2 heart rate tracing. IMPRESSION: labor at approximately at 33-34 weeks gestation with poor antepartum care that was insufficient in nature, tobacco abuse in , grand multiparity elderly grand multiparous patient in active labor. PLAN: Admission, vancomycin for group B strep prophylaxis, neonatology consult, anticipate spontaneous vaginal delivery. Reported By: David Hodge MD Electronically Signed Date/Time: 03/15/17 0720 Dictated Date/Time: 03/14/172131 Transcribed Date/Time: 03/14/172200 Cardiothoracic Anesthesia Technician: JEAN-PAUL HPHistory and physical examinationIMEDX.Lenard DvnkcvrfoDfqqlCpmsshmtb9665-83-82I78:41 :00HISTORY AND PHYSICAL ORMTPR9701461MBUQLPwttaztnk for patient careSu HadleyLhmsrkPLVGMTDODGCV2970-67-23I50:21:13 David Hodge ST[facility] 2017-03-13 11:07:00 [id number] 8tU1Ts326YdS950U5Oo vWEe0Tsqc4rZS8ocnTz4yt5n42A0fPAvxpDHC94 03-03-27T11:07:00[facility] Name: MARIA ANTONIA DOTSON [address] : 1980, Age: 37, Sex: F SHYAM [place] [address] Unit #: [id number], Status: ADM IN [phone] Location: [facility] Report Dict : GERA BURGESS MD Admission Date: 03/10/17 Report #: [id number] Discharge Date: CC: Event Note Event Note - Event Note Event Note: DISCHARGE NOTE: Summary: Patient was admitted 2017 as a with unsure gestational dating. She is a at 33 weeks by ultrasound this admission, but 39 weeks by her dates. BPP done this AM (03/13) was 8/8 (8/10 for NST). No decels on NST. She has outpatient follow up this week with the [facility]. As there is no acute need for intervention at this time, with unsure dates, we will plan to repeat a sono in 2-3 weeks as an outpatient. Admit: 03/10/17 Discharge: 03/13/17 Diagnosis: Third rimester Poor gestational criteria Reassuring antepartum surveillance <Electronically signed by Gera Burgess MD> 03/13/17 1107 PNProcedure noteCHAFidel GilmanFjgfdlWzemjGkovwg7180-16-09D43:07:00Eve nt Jbkz3160747WEDHPXkxgklpnx for patient careGRANT BESTKKAJIOLWQYRJEMNQEG5252-46-88I08:09:06 GERA BURGESS STLS[facility] 2017-03-13 10:38:00 [id number] ZAeKUyczWw3VmMelea2 vjDMMZaA3nLDXmxfZBfOf6UQ36RwUYnSyjd8z75 03-03-27T10:38:00[facility] Name: MARIA ANTONIA DOTSON [address] : 1980, Age: 37, Sex: SHYAM Dickerson [address] Unit #: [id number], Status: ADM IN [phone] Location: [facility] Report Dict DrJose: GERA BURGESS MD Admission Date: 03/10/17 Report #: [id number] Discharge Date: CC: Event Note Event Note - Event Note Event Note: BPP now 09/21, cephalic. Patient desires discharged home. We are unable to get any other information from [place] where she states she had care. As no immediate need for delivery, we may discahrge home this afternoon. <Electronically signed by Gera Burgess MD> 03/13/17 1038 PNProcedure noteDennysanthony HkrjndZobtiJwhyhi2857-77-17O61:38:00Eve nt [id number] for patient PeterANTHONYGRANTPQDYUHGOGGXCXLHXCD3727-03-81A39:40:31 GERA BURGESS STLSJH 2017-03-13 10:12:00 [id number] 39s+3LCIJfEMNgmW082 2SAvNJusa4w+e6j79Vto/QwaRdkMQMNbdzwTa30 03-03-27T10:12:00[facility] Name: MARIA ANTONIA DOTSON [employer] : 1980, Age: 37, Sex: SHYAM Dickerson [id number] Unit #: [id number], Status: ADM IN [phone] Location: [address] Report D[address] Dr.: GERA BURGESS MD Admission Date: 03/10/17 Report #: [id number] Discharge Date: CC: Labor Delivery Progress Note Labor Delivery Progress Note - Objective Vital signs reviewed and normal: yes General: NAD FHT: category 2 - Assessment (1) Third trimester fetus Code(s): Z34.93 - ENCNTR FOR SUPRVSN OF NORMAL PREG, UNSP, THIRD TRIMESTER Current Visit: Yes Status: Acute Plan: continue plan of care (Patient is here with poor gestational criteria. Possibly 39 weeks by dates but no record of dating. Here, EGA 33 weeks (IUGR?). She is a with some limited outside PNC. NST this am has no deceks but min variability. I have requested a BPP to gather more information.) <Electronically signed by Gera Burgess MD> 03/13/17 1013 PRProgress noteFidel BestDwurxtKxydyBueuiz4181-80-35Y69:12:00Lab or & Delivery Progress [id number] for patient GRANT FongGNNDKZCLOKNHUDYVKL4385-81-45A88:14:16 GERA BURGESS STLSJH 2017-03-12 15:34:00 [id number]/o6 azOahhMLiwyTAL6oHbo mvBkwLv2W/gRNhYbsuj2k6hfgdDz9nTOSPCj200 03-03-26T15:34:00[facility] Name: MARIA ANTONIA DOTSON [employer] : 1980, Age: 37, Sex: SHYAM Dickerson [id number] Unit #: [id number], Status: ADM IN [phone] Location: [place] [facility] Report Dict Dr.: JOSE ALBERT MD Admission Date: 03/10/17 Report #: [id number] Discharge Date: CC: JOSE ALBERT MD Unknown,Unknown PROGRESS NOTE DATE OF SERVICE: 03/12/2017 SUBJECTIVE: The patient now is hospital day #3, admitted with an intrauterine , estimated at 33 weeks by 33-week ultrasound in labor. There is some confusion on her established due date as they had on reported a due date of 03/16/2017. Given the patient's lack of care, we are unable to establish or confirm the reported dating and have treated this as a labor at 33 weeks. Her labor has been arrested at 4 cm dilation and is now status post steroid administration and will be 48 hours this evening, with polyhydramnios at 25 cm of water and otherwise has been reassuring. The patient reports today that she is without contractions. Tolerating p.o., and otherwise has no complaints. OBJECTIVE: VITAL SIGNS: Today, blood pressure 129/60, heart rate is 77, respiratory rate of 18 and temperature 98.8. GENERAL: She appears to be in no acute distress. She is alert and oriented, and cooperative and pleasant to interact with. The patient has reported that her mother has been unable to find the paperwork documenting her clinic visit from last October where she reports she had an ultrasound dating her to 03/31/2017. The patient is currently without care outside the hospital and is uninsured. We will attempt to get her set up with the Clinic and once discharged from the home will need weekly visits with weekly BPPs until we can confirm that the baby is not growth restricted. heart tracing: This morning's NST shows a baseline in the 130s with moderate long-term variability, positive accelerations, no decelerations, no contractions. ASSESSMENT AND PLAN: The patient is a 37-year-old G7, P4 female with an intrauterine , estimated at 33 weeks and 5 days based 33-week ultrasound. The patient is status post steroids is now antibiotics and cervical tocolytics have been discontinued today. We have put a consultation for case management to assist and establishing eligibility for Medicaid and will attempt to get her set up to be seen at the Clinic. Reported By: JOSE ALBERT MD Electronically Signed Date/Time: 03/12/172 Dictated Date/Time: 03/12/17 1241 Transcribed Date/Time: 03/12/17 1338 Cardiothoracic Anesthesia Technician: Pablo Humphriesabeth2018-01-27T15:34 :00PROGRESS [id number] for patient careCURA[facility] – [place] CITYJOSE PAZPEGZZHPXPSNCWXWFVG9872-47-07Q59:13:31 JOSE ALBERT STLSJH 2017-03-11 11:02:00 [id number] iq2+4/2Yqr/XBv7qrhZ XLbjj+7BNuh/H0aC1qJ43n0KEsaJ6zj7HK8ai58 03-03-25T11:02:00[facility] Name: MARIA ANTONIA DOTSON [address] : 1980, Age: 37, Sex: Sandip Pulido [place] [id number] Unit #: [id number], Status: ADM IN [phone] Location: [address] Report Dict Dr.: Aba Galdamez MD Admission Date: 03/10/17 Report #: [id number] Discharge Date: CC: Event Note Event Note - Event Note Event Note: S: pt c/o heart burn that precipitates N/V. She still c/o pressure in the pelvis but denies ctx. Overall she feels better than last PM when she came in O: AVSS NAD Resp unlabored OB. FHT Cat I this AM, toco quiet to irritable Laboratory Last Values WBC 9.9 thou/uL (4.8-10.8) 03/10/17 20:00 RBC 3.49 mill/uL (4.20-5.40) L 03/10/17 20:00 Hgb 11.6 g/dL (12.0-16.0) L 03/10/17 20:00 Hct 33.3 % (36.0-47.0) L 03/10/17 20:00 MCV 95.4 fl (81.0-99.0) 03/10/17 20:00 MCH 33.2 pg (27.0-31.0) H 03/10/17 20:00 MCHC 34.8 g/dL (32.0-36.0) 03/10/17 20:00 RDW 11.3 % (11.5-14.5) L 03/10/17 20:00 Plt Count 251 thou/uL (130-400) 03/10/17 20:00 MPV 7.0 fL (7.4-10.4) L 03/10/17 20:00 POC Glucose 95 mg/dL (70-110) 03/10/17 21:01 Urine Color Yellow (Yellow) 03/10/17 17:29 Urine Clarity Clear (Clear) 03/10/17 17: Urine pH 7.0 (5.0-9.0) 03/10/17 17:29 Ur Specific [place] 1.020 (1.005-1.030) 03/10/17 17:29 Urine Protein Negative mg/dL (Neg-Trace) 03/10/17 17: Urine Glucose (UA) Negative mg/dL (Negative) 03/10/17 17:29 Urine Ketones Negative mg/dL (Negative) 03/10/17 17:29 Urine Blood Negative (Negative) 03/10/17 17:29 Urine Nitrite Negative (Negative) 03/10/17 17:29 Urine Bilirubin Negative (Negative) 03/10/17 17:29 Urine Urobilinogen 0.2 mg/dL (0.2-1.0) 03/10/17 17:29 Ur Leukocyte Esterase Negative (Negative) 03/10/17 17:29 Urine RBC 0-3 HPF (0-3) 03/10/17 17:29 Urine WBC 0-3 HPF (0-3) 03/10/17 17:29 Ur Squamous Epith Cells 0-3 HPF (0-3) 03/10/17 17:29 Urine Bacteria None Seen HPF (None Seen) 03/10/17 17:29 Hyaline Casts 0-3 HYALINE CAST LPF (0-3 Hyaline) 03/10/17 17:29 Amnio Swab Test No Membranes Rupture (No Rupture) 03/10/17 20:20 Urine Opiates Screen Not Detected (NotDetected) 03/10/17 17:29 Ur Oxycodone Screen Not Detected (NotDetected) 03/10/17 17:29 Urine Methadone Screen Not Detected (NotDetected) 03/10/17 17:29 Ur Propoxyphene Screen Not Detected (NotDetected) 03/10/17 17:29 Ur Barbiturates Screen Not Detected (NotDetected) 03/10/17 17:29 Ur Tricyclics Screen Not Detected (NotDetected) 03/10/17 17:29 Ur Phencyclidine Scrn Not Detected (NotDetected) 03/10/17 17:29 Ur Amphetamines Screen Not Detected (NotDetected) 03/10/17 17:29 U Methamphetamines Scrn Not Detected (NotDetected) 03/10/17 17:29 U Benzodiazepines Scrn Not Detected (NotDetected) 03/10/17 17:29 U Cocaine Metab Screen Not Detected (NotDetected) 03/10/17 17:29 U Cannabinoids Screen Not Detected (NotDetected) 03/10/17 17:29 Drug Screen Comment () 03/10/17 17:29 Syphilis IgG/IgM Ab Nonreactive (Nonreactive) 03/10/17 20:00 Hep Bs Antibody Non-Reactive (NonReactive) 03/10/17 20:00 Hep Bs Antibody Index 2.58 mIU/mL 03/10/17 20:00 Blood Type O POSITIVE 03/10/17 20:00 Antibody Screen NEGATIVE 03/10/17 20:00 A/P: 37 yo * unsure datin weeks by stated EDC, 32-33 weeks by irreg LMP and sono here last night * ctx/labor: Arrested at 4 cm. * Betamethasone s/p dose 1 of 2, and nifedipine tocolysis * possible asymetric IUGR, borderline dopplers. * Twice daily NST, twice weekly BPP, assess for interval growth in 3-4 weeks * AMA * tobacco use in * ltd care in [facility] + 1 ER visit with S W in [place]. Release of record form sent to [facility] but Dr. Albert spoke to clinic doctor and records not available. No Sono report from [facility] visit earlier this month. * Hep B SAg ordered * GBS culture pending, currently on Vancomycin (PCN Allergic with anaphylaxis) <Electronically signed by Aba Galdamez MD> 03/11/17 1118 PNProcedure noteJillian GeigerMiuydBhgaemmAbjxfS7744-88-73K68:02:00Ev ent [id number] for patient careAmanda GeigerTixeaGGMZODAGSCWC4138-06-28O08:20:06 Aba Galdamez STLSJH 2017-03-11 03:36:00 [id number]+cP 138hDBJ1VFx5YSWBrFi 5Ld2hHKUjEdFtEMVUmu0HryNKPzDMVlcNTmKP31 03-03-25T03:36:00[facility] Name: MARIA ANTONIA DOTSON [address] : 1980, Age: 37, Sex: Sandip PulidoSHYAM [id number] Unit #: [id number], Status: ADM IN [phone] [facility] #: [id number] Location: [address] Report Dict Dr.: JOSE ALBERT MD Admission Date: 03/10/17 Report #: [id number] Discharge Date: CC: SAVANA CHACON MD, GEORGE MICHAEL MD Unknown,Unknown HISTORY AND PHYSICAL REPORT DATE OF ENCOUNTER: 2017. No care. CHIEF COMPLAINT: Abdominal pains. HISTORY OF PRESENT ILLNESS: The patient is a 37-year-old G7, P4 female with an intrauterine stated to be 39 weeks and 3 days by a reported due date of 03/14/2017. Patient reports that she recently moved from [place] where she was seeing Dr. Alvarado for her care; however, after looking into getting records and speaking to the provider associated with that practice, she has no records with them. Patient further reported that she had only visited them once and had gotten an ultrasound there giving a due date of 03/31/2017 to 03/30/2017. She reports that her last period was in July, though she does not have regular periods. Patient presents with complaints of abdominal pains and is here for evaluation. She denies any vaginal bleeding. She reported that she was having a little bit of leakage of fluid over the last 3 days where she was having to wear a pad and was not sure if it was due to leaking urine or breaking her bag. Patient denies headache, chest pain, shortness of breath, nausea. She reports some nausea and vomiting with the . Denies diarrhea or constipation, any new rash, hip problems, knee problems, muscle weakness, vaginal bleeding, urinary urgency or frequency. PAST MEDICAL HISTORY: Patient reports she has had stomach cancer in the past and took an oral chemotherapy, but has not followed up in 4 years. In further inquiring more about her due date and how it was established, patient reports she had an ultrasound done at [facility] where they have given her due date of 03/16/2017 from a previous reported due date of 03/31/2017; however, an attempt to obtain this ultrasound report. There was no formal ultrasound performed but her dating had been estimated by a bedside ultrasound from ER physician. PAST SURGICAL HISTORY: Patient reports she has had tonsillectomy and appendectomy and gallbladder removal. SOCIAL HISTORY: Patient reports she smokes about a half pack a day. Denies drug or alcohol use. Upon further discussing the details of her left eye. ALLERGIES: PENICILLIN and TRAMADOL. She states that she gets all swollen and hives when she takes PENICILLIN. OB LABS: Unavailable. REVIEW OF SYSTEMS: Per HPI. PHYSICAL EXAMINATION: VITAL SIGNS: Blood pressure 138/63, heart rate of 97, respiratory rate 20, satting 98% on room air, temperature 97.9. Repeat blood pressure had been in the one teens over 60s. GENERAL: She appears to be in no acute distress. She is alert and oriented, and cooperative and pleasant to interact with. HEAD: Normocephalic, atraumatic. LUNGS: Clear to auscultation bilaterally. HEART: Regular rate and rhythm. ABDOMEN: Soft and nontender. Gravid. EXTREMITIES: Nontender, nonedematous. CERVICAL: On presentation was 2.5, 15 and -3 station. heart tracing performed for threatened labor. Baseline is noted to be in the 130s with moderate long-term variability, positive accelerations, no decelerations. She is having contractions with a lot of irritability and contractions about every 3-4 minutes. LABORATORY DATA: White count of 9.9, hemoglobin 11.6, hematocrit 33.3, and platelets of 251,000. A spot glucose was 95. A urine was negative for nitrites, leukocyte esterase, white blood cells, bacteria, M-swab test was negative for evidence of rupture of membranes. Urine drug screen was negative. Syphilis IgG, IgM was nonreactive, blood type is O positive, antibody screen is negative. ultrasound performed to confirm dating demonstrates a cantu with an estimated gestational age of 33 weeks and a day and estimated weight of 1954 grams. Placenta is anterior, no evidence of previa and GILBERTO is 25. Of note, there is a 3-week lag between the biparietal diameter and the femur length. ASSESSMENT AND PLAN: Patient is a 37-year-old female with zskesf-kf-fwdesvef care and a large discrepancy between what her stated due date is due to reported previous ultrasounds and the ultrasound performed today. Given the incomplete records and history, it is unclear whether the patient truly has a child with a normal for gestational age size and is 33 weeks or is in fact IUGR and term. We have ordered umbilical artery Dopplers. We will attempt again tomorrow to reach the physician's office in [place] to attempt again to find an ultrasound that is reported to have been performed; therefore comparison and dating. In the meantime, I will move from treating the patient as a term patient with expected management from which she has changed from 2-1/2 to 4 cm during her stay to one of labor. Patient will be tocolyzed with Procardia, placed on betamethasone and vancomycin for antibiotic, GBS prophylaxis. The NICU team has been notified and patient has been placed in full admission. Baby is in vertex presentation. Reported By: JOSE ALBERT MD Electronically Signed Date/Time: 03/12/172111 Dictated Date/Time: 03/10/17 2348 Transcribed Date/Time: 03/11/17 0310 Cardiothoracic Anesthesia Technician: MADHURI HPHistory and physical examinationIMEDX.Andreia GarcíaNlquzkNlpvwUquiqe4873-18-56L82:36:00HIS TORY AND PHYSICAL [id number] for patient careHODGEHJOSE SAMUELSMUANVAFNZGTSNUNHWW0378-06-30S11:13:00 JOSE ALBERT STLSJH
--- NOTE | 2023-03-12 21:27 | EDPHYS ---
Physician Documentation [facility] Name: Maria Antonia Dotson Age: 43 yrs Sex: Female : 1980 Arrival Date: 03/12/2023 Time: 20:50 Bed 10 Private MD: ED Physician Trevon Hernández HPI: 03/12 21:24 This 43 yrs old Female presents to ER via Ambulatory with complaints of Ear Pain, cp Drainage From Ear. 21:24 The patient presents with drainage, pain, that is acute, tenderness. The complaints cp affect the right ear. Onset: The symptoms/episode began/occurred 3 day(s) ago. Associated signs and symptoms: Pertinent negatives: cough, fever, rhinorrhea, sinus trouble, shortness of breath, sore throat, vertigo, vomiting. Severity of symptoms: in the emergency department the symptoms are unchanged despite home interventions. Historical: - Allergies: 21:06 PENICILLINS; ha1 21:06 Tramadol HCl; ha1 - PMHx: 21:06 Hypertensive disorder; ha1 - PSHx: 21:06 Appendectomy; Cholecystectomy; ha1 - Immunization history:: Adult Immunizations up to date. - Social history:: Smoking status: Patient reports the use of cigarette tobacco products, smokes one-half pack cigarettes per day. ROS: 21:25 Constitutional: Negative for body aches, chills, fever, poor PO intake, cp 21:25 Eyes: Negative for injury, pain, redness, and discharge, cp 21:25 ENT: Positive for drainage from ear(s), ear pain, Negative for hearing loss, sinus congestion, sinus pain, sore throat, difficulty swallowing, difficulty handling secretions, 21:25 Respiratory: Negative for cough, shortness of breath, wheezing, 21:25 Abdomen/GI: Negative for abdominal pain, vomiting, diarrhea, constipation, 21:25 Skin: Negative for rash, 21:25 Neuro: Negative for altered mental status, dizziness, headache, weakness, 21:25 All other systems are negative, Exam: 21:25 Constitutional: The patient appears in no acute distress, alert, awake, non-toxic, well cp developed, well nourished, uncomfortable, 21:25 Head/Face: Normocephalic, atraumatic. cp 21:25 Eyes: Periorbital structures: appear normal, Conjunctiva: normal, no exudate, no injection, Lids and lashes: appear normal, bilaterally, 21:25 ENT: External ear(s): pain with movement, that is moderate, of the pinna of right ear and right ear canal, Ear canal(s): bleeding, is not appreciated, erythema, that is minimal, of the right canal, purulent discharge, that is minimal, TM's: erythema, that is mild, on the right, Nose: is normal, Mouth: Lips: moist, Posterior pharynx: Airway: no evidence of obstruction, patent, 21:25 Neck: ROM/movement: is normal, is supple, without pain, no range of motions limitations, 21:25 Chest/axilla: Inspection: normal, 21:25 Cardiovascular: Rate: normal, 21:25 Respiratory: the patient does not display signs of respiratory distress, Respirations: normal, no use of accessory muscles, 21:25 Abdomen/GI: Exam negative for discomfort, distension, guarding, 21:25 Skin: no rash present. 21:25 Neuro: Orientation: to person, place \T\ time. Mentation: is normal, Vital Signs: 21:02 BP 136 / 82; Pulse 93; Resp 17 S; Temp 98.1; Pulse Ox 100% on R/A; Weight 83.91 kg; ha1 Height 5 ft. 5 in. ; 21:02 Body Mass Index 30.79 (83.91 kg, 165.1 cm) ha1 MDM: 21:09 Patient medically screened. 21:25 Differential diagnosis: otitis media, otitis externa, ruptured TM, foreign body, acute cp otalgia, cerumen impaction. 21:26 Data reviewed: vital signs, nurses notes, and as a result, I will discharge patient. 21:26 I considered the following discharge prescriptions or medication management in the emergency department Medications were administered in the Emergency Department. See MAR. Counseling: I had a detailed discussion with the patient and/or guardian regarding the historical points, exam findings, and any diagnostic results supporting the discharge/admit diagnosis, to return to the emergency department if symptoms worsen or persist or if there are any questions or concerns that arise at home. Administered Medications: 21:33 Drug: Hydrocodone-Acetaminophen PO (7.5 mg-325 mg) 1 tabs PO once Route: PO; as6 21:34 Follow up: Response: No adverse reaction as6 21:33 Drug: Ibuprofen PO 800 mg PO once Route: PO; as6 21:34 Follow up: Response: No adverse reaction as6 21:33 Drug: Ciprofloxacin PO 500 mg PO once Route: PO; as6 21:34 Follow up: Response: No adverse reaction as6 Disposition Summary: 03/12/23 21:26 Discharge Ordered Notes: Location: Home cp Problem: new cp Symptoms: have improved cp Condition: Stable cp Diagnosis - Other otitis externa, right ear cp Followup: cp - With: Private Physician - When: 2 - 3 days - Reason: Worsening of condition Discharge Instructions: - Discharge Summary Sheet cp - Ear Drops, Adult cp - Otitis Externa cp Forms: - Medication Reconciliation Form cp - Thank You Letter cp - Antibiotic Education cp - Prescription Opioid Use cp - Patient Portal Instructions cp - Leadership Thank You Letter cp Prescriptions: - Ibuprofen 800 mg Oral Tablet - take 1 tablet ORAL route every 8 hours As needed take with food; 30 tablet; cp Refills: 0, Product Selection Permitted - Cipro 500 mg Oral Tablet - take 1 tablet ORAL route every 12 hours for 7 days; 14 tablet; Refills: 0, cp Product Selection Permitted - Ciprodex 0.3-0.1 % Otic drops, suspension - instill 4 drops OTIC route every 12 hours for 7 days , for ears ONLY; 1 unit; cp Refills: 0, Product Selection Permitted Signatures: Trevon Singer PA PA cp Slawson, Ashby, RN RN as6 Brianna Del Castillo RN RN ha1 Corrections: (The following items were deleted from the chart) 03/13 20:50 03/12 21:30 This 43 yrs old Female presents to ER via Ambulatory with complaints of Ear cp Pain, Drainage From Ear. cp 03/13 20:50 03/12 21:30 The patient presents with drainage, pain, that is acute, tenderness, cp cp 03/13 20:50 03/12 21:30 The complaints affect the right ear, cp cp 03/13 20:50 03/12 21:30 Onset: The symptoms/episode began/occurred 3 day(s) ago, cp cp 03/13 20:50 03/12 21:30 Associated signs and symptoms: Pertinent negatives: cough, fever, cp rhinorrhea, sinus trouble, shortness of breath, sore throat, vertigo, vomiting, cp 03/13 20:50 03/12 21:30 Severity of symptoms: in the emergency department the symptoms are cp unchanged despite home interventions, cp
--- NOTE | 2023-03-12 21:27 | ER ---
Nurse's Notes [facility] Name: Maria Antonia Dotson Age: 43 yrs Sex: Female : 1980 Arrival Date: 03/12/2023 Time: 20:50 Bed 10 Private MD: Diagnosis: Other otitis externa, right ear Presentation: 03/12 21:02 Chief complaint: Patient states: I have been having ear ache on my right ear for the ha1 past three days and now fluid is coming out my ear. Coronavirus screen: Vaccine status: Patient reports receiving the 2nd dose of the covid vaccine. Patient reports being unvaccinated. Ebola Screen: No symptoms or risks identified at this time. Initial Sepsis Screen: Does the patient meet any 2 criteria? No. Patient's initial sepsis screen is negative. Does the patient have a suspected source of infection? Yes: Other: right ear. Risk Assessment: Do you want to hurt yourself or someone else? Patient reports no desire to harm self or others. Onset of symptoms was March 12, 2023. 21:02 Method Of Arrival: Ambulatory ha1 21:02 Acuity: LILIANA 4 ha1 Triage Assessment: 21:06 General: Appears uncomfortable, Behavior is cooperative. Pain: Complains of pain in ha1 right ear Pain does not radiate. Pain currently is 6 out of 10 on a pain scale. EENT: Tympanic membrane reddened on right ear. Cardiovascular: Capillary refill < 3 seconds Patient's skin is warm and dry. Respiratory: Airway is patent Respiratory effort is even, unlabored, Respiratory pattern is regular, symmetrical. Historical: - Allergies: 21:06 PENICILLINS; ha1 21:06 Tramadol HCl; ha1 - PMHx: 21:06 Hypertensive disorder; ha1 - PSHx: 21:06 Appendectomy; Cholecystectomy; ha1 - Immunization history:: Adult Immunizations up to date. - Social history:: Smoking status: Patient reports the use of cigarette tobacco products, smokes one-half pack cigarettes per day. Screenin:11 [facility] ED Fall Risk Assessment (Adult) Score/Fall Risk Level 0 - 2 = Low Risk. Abuse as6 screen: Denies threats or abuse. Denies injuries from another. Nutritional screening: No deficits noted. Tuberculosis screening: No symptoms or risk factors identified. Vital Signs: 21:02 BP 136 / 82; Pulse 93; Resp 17 S; Temp 98.1; Pulse Ox 100% on R/A; Weight 83.91 kg; ha1 Height 5 ft. 5 in. ; 21:02 Body Mass Index 30.79 (83.91 kg, 165.1 cm) ha1 ED Course: 20:54 Patient arrived in ED. jj6 21:06 Triage completed. ha1 21:09 Trevon Singer PA is PHCP. cp 21:09 Trevon Hernández MD is Attending Physician. cp 21:11 Vladimir Lainez, RN is Primary Nurse. as6 21:11 Arm band placed on. as6 21:11 Bed in low position. Call light in reach. as6 21:34 Provided Education on: rx teaching . as6 21:34 No provider procedures requiring assistance completed. Patient did not have IV access as6 during this emergency room visit. Administered Medications: 21:33 Drug: Hydrocodone-Acetaminophen PO (7.5 mg-325 mg) 1 tabs PO once Route: PO; as6 21:34 Follow up: Response: No adverse reaction as6 21:33 Drug: Ibuprofen PO 800 mg PO once Route: PO; as6 21:34 Follow up: Response: No adverse reaction as6 21:33 Drug: Ciprofloxacin PO 500 mg PO once Route: PO; as6 21:34 Follow up: Response: No adverse reaction as6 Medication: 21:11 VIS not applicable for this client. as6 Outcome: 21:26 Discharge ordered by MD. cp 21:34 Discharged to home ambulatory, as6 21:34 Condition: stable 21:34 Discharge instructions given to patient, Instructed on discharge instructions, follow up and referral plans. medication usage, Demonstrated understanding of instructions, follow-up care, medications, Prescriptions given X 3, 21:35 Patient left the ED. as6 Signatures: Trevon Singer PA PA cp Jeffries, Jennifer jj6 Vladimir Lainez, KARL RN as6 Brianna Del Castillo RN RN ha1
[2023-03-12 21:43] VITALS: BP 136/82; TEMP 98.1; O2SAT 100
== END ==
LOC: ER 20:50
DX: H60.91 Unspecified otitis externa, right ear (principal); H92.01 Otalgia, right ear; Z88.0 Allergy status to penicillin; Z88.8 Allergy status to other drugs, medicaments and biological substances; Z72.0 Tobacco use